=== PATIENT | male | born 1950 | race African-American/Black ===

== ENCOUNTER 2017-10-16 17:18 | Inpatient (IN) | payer MEDICARE, MEDICAID, OTHER ==
[2017-10-16] MEDS: SOD CHLORIDE 0.9% 500 ML IV (23:17)
[2017-10-16 23:32] LABS: ADD MAN DIFF? NO
[2017-10-16 23:37] LABS: WHITE BLOOD COUNT 8.3 10^3/ul (4.8-10.8)
[2017-10-16 23:37] LABS: BASOPHIL # 0.1 10^3/ul (0.0-0.1); BASOPHILS % 0.6 % (0.0-2.0); EOSINOPHILS # 0.1 10^3/ul (0.0-0.5); HEMATOCRIT 37.2 % (42.0-52.0); HEMOGLOBIN 12.9 g/dl (14.0-18.0); LYMPHOCYTES # 3.6 10^3/ul (0.8-2.9); LYMPHOCYTES % 43.1 % (15.0-51.0); MEAN CORPUSCULAR HEMOGLOBIN 31.9 pg (29.0-33.0); MEAN CORPUSCULAR HGB CONC 34.7 g/dl (32.0-37.0); MEAN CORPUSCULAR VOLUME 92.1 fl (82.0-101.0); MEAN PLATELET VOLUME 9.7 fl (7.4-10.4); MONOCYTE # 0.6 10^3/ul (0.3-0.9); MONOCYTES % 7.2 % (0.0-11.0); NEUTROPHILS % 47.6 % (39.0-77.0); PLATELET COUNT 281 10^3/UL (140-415); RED BLOOD COUNT 4.04 10^6/ul (4.70-6.10); RED CELL DISTRIBUTION WIDTH 12.8 % (11.5-14.5)
[2017-10-16 23:49] LABS: ADD UMIC YES; UR AMORPHOUS CRYSTAL FEW /HPF (NONE SEEN); UR ASCORBIC ACID NEGATIVE (NEGATIVE); UR BACTERIA FEW /HPF (NONE SEEN); UR BILIRUBIN (Dip) NEGATIVE (NEGATIVE); UR BLOOD (Dip) NEGATIVE (NEGATIVE); UR CLARITY TURBID (CLEAR); UR COLOR YELLOW (YELLOW); UR GLUCOSE (Dip) NEGATIVE (NEGATIVE); UR KETONES (Dip) NEGATIVE (NEGATIVE); UR LEUKOCYTE ESTERASE (Dip) 2+ Leu/ul (NEGATIVE); UR NITRITE (Dip) NEGATIVE (NEGATIVE); UR RBC 5 /HPF (0-5); UR SPECIFIC GRAVITY (Dip) 1.016 (1.003-1.030); UR TOTAL PROTEIN (Dip) 3+ mg/dl (NEGATIVE); UR URIC ACID CRYSTAL MANY /HPF (NONE SEEN); UR UROBILINOGEN (Dip) NEGATIVE (NEGATIVE); UR WBC 41 /HPF (0-5)
[2017-10-16 23:52] LABS: LACTIC ACID 1.8 mmol/L (0.5-2.0)
[2017-10-16 23:58] LABS: INR 0.92; PROTIME 12.4 Sec (11.9-14.9)
[2017-10-16 23:59] LABS: PARTIAL THROMBOPLASTIN TIME 31.5 Sec (25.0-35.0)
[2017-10-17] LABS: ALANINE AMINOTRANSFERASE 41 IU/L (13-69); ALBUMIN 3.2 g/dl (3.3-4.9); ALBUMIN/GLOBULIN RATIO 0.88; ALKALINE PHOSPHATASE 55 IU/L (42-121); ANION GAP 16 (8-16); ASPARTATE AMINO TRANSFERASE 37 IU/L (15-46); BLOOD UREA NITROGEN 21 mg/dl (7-20); CALCIUM 9.2 mg/dl (8.4-10.2); CARBON DIOXIDE 21 mmol/L (21-31); CHLORIDE 104 mmol/L (97-110); CREATININE 1.03 mg/dl (0.61-1.24); GLUCOSE 103 mg/dl (70-220); LIPASE 101 U/L (23-300); POTASSIUM 4.2 mmol/L (3.5-5.1); SODIUM 137 mmol/L (135-144); TOTAL PROTEIN 6.8 g/dl (6.1-8.1)
[2017-10-17 00:11] LABS: TROPONIN-I 0.016 ng/ml (0.00-0.12)
[2017-10-17] MEDS ORDERED: ACETAMINOPHEN 325 MG TAB PO ×2 (00:30→03:00)
[2017-10-17] MEDS ORDERED: ONDANSETRON 4 MG INJ IV ×2 (00:30→03:00)
[2017-10-17] MEDS: ONDANSETRON 4 MG INJ IV (00:47)
[2017-10-17] MEDS: morphine 10 MG INJ IV (00:48)
[2017-10-17] MEDS: CEFTRIAXONE 1 GM/50 ML (PMX) 50 ML IVPB ×3 (01:40→20:42)
[2017-10-17] MEDS ORDERED: LORAZEPAM 1 MG TAB PO (03:00)
[2017-10-17] MEDS ORDERED: NACL 0.9% 3 ML SYG IV (03:00)
[2017-10-17] MEDS: DOCUSATE SODIUM 100 MG CAP PO ×3 (03:09→20:42)
[2017-10-17] MEDS: SOD CHLORIDE 0.9% 1,000 ML IV ×3 (03:10→17:29)
[2017-10-17] MEDS: VALSARTAN 80 MG TAB PO ×3 (03:13→20:42)
[2017-10-17] MEDS: morphine 2 MG INJ IV ×4 (06:15→19:38)
[2017-10-17 06:27] LABS: ADD MAN DIFF? NO
[2017-10-17 06:41] LABS: BASOPHILS % 0.6 % (0.0-2.0); EOSINOPHILS # 0.1 10^3/ul (0.0-0.5); EOSINOPHILS % 1.7 % (0.0-7.0); HEMATOCRIT 33.9 % (42.0-52.0); HEMOGLOBIN 11.7 g/dl (14.0-18.0); LYMPHOCYTES # 3.3 10^3/ul (0.8-2.9); LYMPHOCYTES % 52.5 % (15.0-51.0); MEAN CORPUSCULAR HEMOGLOBIN 31.5 pg (29.0-33.0); MEAN CORPUSCULAR HGB CONC 34.5 g/dl (32.0-37.0); MEAN CORPUSCULAR VOLUME 91.4 fl (82.0-101.0); MEAN PLATELET VOLUME 9.8 fl (7.4-10.4); MONOCYTE # 0.5 10^3/ul (0.3-0.9); MONOCYTES % 8.4 % (0.0-11.0); NEUTROPHIL # 2.3 10^3/ul (1.6-7.5); NEUTROPHILS % 36.5 % (39.0-77.0); PLATELET COUNT 254 10^3/UL (140-415); RED BLOOD COUNT 3.71 10^6/ul (4.70-6.10); RED CELL DISTRIBUTION WIDTH 12.8 % (11.5-14.5)
[2017-10-17 06:41] LABS: WHITE BLOOD COUNT 6.3 10^3/ul (4.8-10.8)
[2017-10-17 07:04] LABS: ALANINE AMINOTRANSFERASE 38 IU/L (13-69); ALBUMIN 2.8 g/dl (3.3-4.9); ALKALINE PHOSPHATASE 51 IU/L (42-121); ANION GAP 12 (8-16); ASPARTATE AMINO TRANSFERASE 34 IU/L (15-46); BLOOD UREA NITROGEN 18 mg/dl (7-20); CALCIUM 8.4 mg/dl (8.4-10.2); CARBON DIOXIDE 24 mmol/L (21-31); CHLORIDE 109 mmol/L (97-110); CREATININE 0.86 mg/dl (0.61-1.24); GLUCOSE 93 mg/dl (70-220); MAGNESIUM 1.6 mg/dl (1.7-2.5); PHOSPHORUS 4.2 mg/dl (2.5-4.9); POTASSIUM 3.8 mmol/L (3.5-5.1); SODIUM 141 mmol/L (135-144); TOTAL PROTEIN 6.3 g/dl (6.1-8.1)
[2017-10-17] MEDS ORDERED: ZOLPIDEM 5 MG TAB PO (07:30)
[2017-10-17] MEDS: BACLOFEN 10 MG TAB PO ×2 (08:27→20:42)
[2017-10-17] MEDS: AMLODIPINE 5 MG TAB PO (08:27)
[2017-10-17] MEDS: RISPERIDONE 1 MG TAB PO ×2 (08:31→20:42)
[2017-10-17] MEDS: ENOXAPARIN 40 MG/0.4 ML SYG SC (08:31)
[2017-10-17] MEDS: PANTOPRAZOLE (EC) 40 MG TAB PO (08:34)
[2017-10-17 10:27] LABS: ADD UMIC YES; UR ASCORBIC ACID NEGATIVE (NEGATIVE); UR BACTERIA FEW /HPF (NONE SEEN); UR BILIRUBIN (Dip) NEGATIVE (NEGATIVE); UR BLOOD (Dip) 1+ mg/dL (NEGATIVE); UR CLARITY SLIGHTLY CLOUDY (CLEAR); UR COLOR YELLOW (YELLOW); UR GLUCOSE (Dip) NEGATIVE (NEGATIVE); UR KETONES (Dip) NEGATIVE (NEGATIVE); UR LEUKOCYTE ESTERASE (Dip) 3+ Leu/ul (NEGATIVE); UR NITRITE (Dip) NEGATIVE (NEGATIVE); UR NONSQUAMOUS EPITHELIAL CELL 1 /HPF (NONE SEEN); UR RBC 12 /HPF (0-5); UR SPECIFIC GRAVITY (Dip) 1.016 (1.003-1.030); UR TOTAL PROTEIN (Dip) 3+ mg/dl (NEGATIVE); UR UROBILINOGEN (Dip) NEGATIVE (NEGATIVE); UR WBC 41 /HPF (0-5)
[2017-10-17] MEDS: LIDOCAINE 5% PATCH TD (18:36)
[2017-10-17] MEDS: NICOTINE (21 MG/24 HR) PATCH TRANSDERM (18:36)
[2017-10-17] MEDS: METOPROLOL (XL) 50 MG TAB PO (20:42)
[2017-10-18] MEDS: morphine 2 MG INJ IV (05:34)
[2017-10-18 07:45] LABS: ADD MAN DIFF? NO
[2017-10-18 07:48] LABS: WHITE BLOOD COUNT 5.6 10^3/ul (4.8-10.8)
[2017-10-18 07:48] LABS: BASOPHIL # 0.1 10^3/ul (0.0-0.1); BASOPHILS % 0.9 % (0.0-2.0); EOSINOPHILS # 0.1 10^3/ul (0.0-0.5); HEMATOCRIT 36.3 % (42.0-52.0); HEMOGLOBIN 12.5 g/dl (14.0-18.0); LYMPHOCYTES # 2.4 10^3/ul (0.8-2.9); LYMPHOCYTES % 43.4 % (15.0-51.0); MEAN CORPUSCULAR HEMOGLOBIN 32.1 pg (29.0-33.0); MEAN CORPUSCULAR HGB CONC 34.4 g/dl (32.0-37.0); MEAN CORPUSCULAR VOLUME 93.3 fl (82.0-101.0); MEAN PLATELET VOLUME 10.2 fl (7.4-10.4); MONOCYTE # 0.4 10^3/ul (0.3-0.9); MONOCYTES % 7.4 % (0.0-11.0); NEUTROPHIL # 2.6 10^3/ul (1.6-7.5); NEUTROPHILS % 46.1 % (39.0-77.0); PLATELET COUNT 240 10^3/UL (140-415); RED BLOOD COUNT 3.89 10^6/ul (4.70-6.10); RED CELL DISTRIBUTION WIDTH 12.9 % (11.5-14.5)
[2017-10-18 08:09] LABS: ANION GAP 11 (8-16); BLOOD UREA NITROGEN 16 mg/dl (7-20); CALCIUM 8.9 mg/dl (8.4-10.2); CARBON DIOXIDE 27 mmol/L (21-31); CHLORIDE 111 mmol/L (97-110); GLUCOSE 114 mg/dl (70-220); MAGNESIUM 1.7 mg/dl (1.7-2.5); PHOSPHORUS 3.3 mg/dl (2.5-4.9); POTASSIUM 3.9 mmol/L (3.5-5.1); SODIUM 145 mmol/L (135-144)
[2017-10-18] MEDS: PANTOPRAZOLE (EC) 40 MG TAB PO (08:27)
[2017-10-18] MEDS: DOCUSATE SODIUM 100 MG CAP PO ×2 (08:27→20:52)
[2017-10-18] MEDS: CEFTRIAXONE 1 GM/50 ML (PMX) 50 ML IVPB ×2 (08:27→20:56)
[2017-10-18] MEDS: BACLOFEN 10 MG TAB PO ×2 (08:28→20:56)
[2017-10-18] MEDS: AMLODIPINE 5 MG TAB PO (08:28)
[2017-10-18] MEDS: RISPERIDONE 1 MG TAB PO ×2 (08:28→20:56)
[2017-10-18] MEDS: VALSARTAN 80 MG TAB PO ×2 (08:28→20:52)
[2017-10-18] MEDS: LIDOCAINE 5% PATCH TD (08:29)
[2017-10-18] MEDS: NICOTINE (21 MG/24 HR) PATCH TRANSDERM (08:29)
[2017-10-18] MEDS: ENOXAPARIN 40 MG/0.4 ML SYG SC (08:31)
[2017-10-18] MEDS: MUPIROCIN 2% 22 GM OINT TOP ×2 (13:08→22:15)
[2017-10-18] MEDS: OXYCODONE/ACETAMINOPHEN (5/325) TAB PO (17:34)
[2017-10-18] MEDS: METOPROLOL (XL) 50 MG TAB PO (20:53)
[2017-10-19 07:16] LABS: ANION GAP 10 (8-16); BLOOD UREA NITROGEN 15 mg/dl (7-20); CARBON DIOXIDE 27 mmol/L (21-31); CHLORIDE 113 mmol/L (97-110); CREATININE 0.81 mg/dl (0.61-1.24); GLUCOSE 110 mg/dl (70-220); POTASSIUM 3.8 mmol/L (3.5-5.1); SODIUM 146 mmol/L (135-144)
[2017-10-19] MEDS: CEFTRIAXONE 1 GM/50 ML (PMX) 50 ML IVPB ×2 (08:24→20:29)
[2017-10-19] MEDS: PANTOPRAZOLE (EC) 40 MG TAB PO (08:24)
[2017-10-19] MEDS: DOCUSATE SODIUM 100 MG CAP PO ×2 (08:25→20:27)
[2017-10-19] MEDS: BACLOFEN 10 MG TAB PO ×2 (08:29→20:27)
[2017-10-19] MEDS: VALSARTAN 80 MG TAB PO ×2 (08:29→20:27)
[2017-10-19] MEDS: AMLODIPINE 5 MG TAB PO (08:30)
[2017-10-19] MEDS: RISPERIDONE 1 MG TAB PO ×2 (08:30→20:29)
[2017-10-19] MEDS: NICOTINE (21 MG/24 HR) PATCH TRANSDERM (08:31)
[2017-10-19] MEDS: MUPIROCIN 2% 22 GM OINT TOP ×2 (08:32→20:29)
[2017-10-19] MEDS: LIDOCAINE 5% PATCH TD (08:32)
[2017-10-19] MEDS: ENOXAPARIN 40 MG/0.4 ML SYG SC (08:35)
[2017-10-19] MEDS: morphine 2 MG INJ IV ×2 (10:12→14:09)
[2017-10-19] MEDS ORDERED: VITAMIN A & D 5 GM OINT PACKET TOP (11:59)
[2017-10-19] MEDS: morphine 4 MG/ML VIAL IV ×2 (18:09→22:31)
[2017-10-19] MEDS: METOPROLOL (XL) 50 MG TAB PO (20:28)
[2017-10-20] MEDS: morphine 4 MG/ML VIAL IV ×6 (02:17→22:56)
[2017-10-20] MEDS: CEFTRIAXONE 1 GM/50 ML (PMX) 50 ML IVPB ×2 (08:53→20:35)
[2017-10-20] MEDS: NICOTINE (21 MG/24 HR) PATCH TRANSDERM (08:54)
[2017-10-20] MEDS: DOCUSATE SODIUM 100 MG CAP PO ×2 (08:55→20:35)
[2017-10-20] MEDS: PANTOPRAZOLE (EC) 40 MG TAB PO (08:55)
[2017-10-20] MEDS: VALSARTAN 80 MG TAB PO ×2 (08:55→20:37)
[2017-10-20] MEDS: LIDOCAINE 5% PATCH TD (08:55)
[2017-10-20] MEDS: BACLOFEN 10 MG TAB PO ×2 (08:55→20:35)
[2017-10-20] MEDS: AMLODIPINE 5 MG TAB PO (08:56)
[2017-10-20] MEDS: MUPIROCIN 2% 22 GM OINT TOP ×2 (08:56→20:36)
[2017-10-20] MEDS: ENOXAPARIN 40 MG/0.4 ML SYG SC (08:58)
[2017-10-20] MEDS: RISPERIDONE 1 MG TAB PO ×2 (09:00→20:38)
[2017-10-20] MEDS: hydrALAzine 20 MG INJ IV (15:14)
[2017-10-20] MEDS: METOPROLOL (XL) 50 MG TAB PO (20:35)
[2017-10-21] MEDS: morphine 4 MG/ML VIAL IV ×5 (02:49→19:55)
[2017-10-21] MEDS: NICOTINE (21 MG/24 HR) PATCH TRANSDERM (08:24)
[2017-10-21] MEDS: CEFTRIAXONE 1 GM/50 ML (PMX) 50 ML IVPB ×2 (08:24→20:26)
[2017-10-21] MEDS: DOCUSATE SODIUM 100 MG CAP PO ×2 (08:25→20:24)
[2017-10-21] MEDS: PANTOPRAZOLE (EC) 40 MG TAB PO (08:25)
[2017-10-21] MEDS: BACLOFEN 10 MG TAB PO ×2 (08:25→20:25)
[2017-10-21] MEDS: VALSARTAN 80 MG TAB PO ×2 (08:25→20:25)
[2017-10-21] MEDS: AMLODIPINE 5 MG TAB PO (08:26)
[2017-10-21] MEDS: LIDOCAINE 5% PATCH TD (08:26)
[2017-10-21] MEDS: ENOXAPARIN 40 MG/0.4 ML SYG SC (08:37)
[2017-10-21] MEDS: RISPERIDONE 1 MG TAB PO ×2 (08:41→20:25)
[2017-10-21] MEDS: MUPIROCIN 2% 22 GM OINT TOP ×2 (08:42→20:26)
[2017-10-21 14:27] LABS: ADD MAN DIFF? NO
[2017-10-21 14:30] LABS: BASOPHIL # 0.1 10^3/ul (0.0-0.1); BASOPHILS % 0.8 % (0.0-2.0); EOSINOPHILS # 0.1 10^3/ul (0.0-0.5); EOSINOPHILS % 2.1 % (0.0-7.0); HEMATOCRIT 35.3 % (42.0-52.0); HEMOGLOBIN 12.2 g/dl (14.0-18.0); LYMPHOCYTES # 2.7 10^3/ul (0.8-2.9); LYMPHOCYTES % 41.9 % (15.0-51.0); MEAN CORPUSCULAR HEMOGLOBIN 31.9 pg (29.0-33.0); MEAN CORPUSCULAR HGB CONC 34.6 g/dl (32.0-37.0); MEAN CORPUSCULAR VOLUME 92.4 fl (82.0-101.0); MEAN PLATELET VOLUME 10.2 fl (7.4-10.4); MONOCYTE # 0.5 10^3/ul (0.3-0.9); MONOCYTES % 7.4 % (0.0-11.0); NEUTROPHIL # 3.1 10^3/ul (1.6-7.5); NEUTROPHILS % 47.5 % (39.0-77.0); PLATELET COUNT 220 10^3/UL (140-415); RED BLOOD COUNT 3.82 10^6/ul (4.70-6.10); RED CELL DISTRIBUTION WIDTH 12.8 % (11.5-14.5)
[2017-10-21 14:30] LABS: WHITE BLOOD COUNT 6.5 10^3/ul (4.8-10.8)
[2017-10-21 14:57] LABS: ANION GAP 11 (8-16); BLOOD UREA NITROGEN 18 mg/dl (7-20); CALCIUM 8.6 mg/dl (8.4-10.2); CARBON DIOXIDE 26 mmol/L (21-31); CHLORIDE 109 mmol/L (97-110); CREATININE 0.71 mg/dl (0.61-1.24); GLUCOSE 121 mg/dl (70-220); MAGNESIUM 1.4 mg/dl (1.7-2.5); POTASSIUM 3.7 mmol/L (3.5-5.1); SODIUM 142 mmol/L (135-144)
[2017-10-21] MEDS: METOPROLOL (XL) 50 MG TAB PO (20:25)
[2017-10-22] MEDS: morphine 4 MG/ML VIAL IV ×6 (00:02→20:14)
[2017-10-22] MEDS: BACLOFEN 10 MG TAB PO ×2 (08:12→20:17)
[2017-10-22] MEDS: DOCUSATE SODIUM 100 MG CAP PO ×2 (08:12→20:17)
[2017-10-22] MEDS: CEFTRIAXONE 1 GM/50 ML (PMX) 50 ML IVPB ×2 (08:13→20:14)
[2017-10-22] MEDS: PANTOPRAZOLE (EC) 40 MG TAB PO (08:13)
[2017-10-22] MEDS: NICOTINE (21 MG/24 HR) PATCH TRANSDERM (08:14)
[2017-10-22] MEDS: LIDOCAINE 5% PATCH TD (08:15)
[2017-10-22] MEDS: AMLODIPINE 5 MG TAB PO (08:19)
[2017-10-22] MEDS: VALSARTAN 80 MG TAB PO ×2 (08:20→20:17)
[2017-10-22] MEDS: ENOXAPARIN 40 MG/0.4 ML SYG SC (08:29)
[2017-10-22] MEDS: MUPIROCIN 2% 22 GM OINT TOP ×2 (09:00→20:18)
[2017-10-22] MEDS: RISPERIDONE 1 MG TAB PO ×3 (09:00→20:23)
[2017-10-22] MEDS: METOPROLOL (XL) 50 MG TAB PO (20:17)
[2017-10-23] MEDS: morphine 4 MG/ML VIAL IV ×6 (00:24→21:42)
[2017-10-23] MEDS: hydrALAzine 20 MG INJ IV ×3 (02:34→15:43)
[2017-10-23] MEDS: CEFTRIAXONE 1 GM/50 ML (PMX) 50 ML IVPB ×2 (08:23→21:42)
[2017-10-23] MEDS: DOCUSATE SODIUM 100 MG CAP PO ×2 (08:23→21:40)
[2017-10-23] MEDS: VALSARTAN 80 MG TAB PO ×2 (08:23→21:40)
[2017-10-23] MEDS: PANTOPRAZOLE (EC) 40 MG TAB PO (08:23)
[2017-10-23] MEDS: AMLODIPINE 5 MG TAB PO (08:24)
[2017-10-23] MEDS: BACLOFEN 10 MG TAB PO ×2 (08:24→21:40)
[2017-10-23] MEDS: NICOTINE (21 MG/24 HR) PATCH TRANSDERM (08:24)
[2017-10-23] MEDS: MUPIROCIN 2% 22 GM OINT TOP ×2 (08:25→21:42)
[2017-10-23] MEDS: LIDOCAINE 5% PATCH TD (08:25)
[2017-10-23] MEDS: ENOXAPARIN 40 MG/0.4 ML SYG SC (08:28)
[2017-10-23] MEDS: RISPERIDONE 1 MG TAB PO (21:00)
[2017-10-24] MEDS: morphine 4 MG/ML VIAL IV ×6 (01:43→22:05)
[2017-10-24] MEDS: RISPERIDONE 1 MG TAB PO ×2 (09:00→20:40)
[2017-10-24] MEDS: PANTOPRAZOLE (EC) 40 MG TAB PO (09:14)
[2017-10-24] MEDS: CEFTRIAXONE 1 GM/50 ML (PMX) 50 ML IVPB (09:14)
[2017-10-24] MEDS: VALSARTAN 80 MG TAB PO ×2 (09:15→20:40)
[2017-10-24] MEDS: DOCUSATE SODIUM 100 MG CAP PO ×2 (09:15→20:38)
[2017-10-24] MEDS: BACLOFEN 10 MG TAB PO ×2 (09:15→20:38)
[2017-10-24] MEDS: NICOTINE (21 MG/24 HR) PATCH TRANSDERM (09:16)
[2017-10-24] MEDS: MUPIROCIN 2% 22 GM OINT TOP ×2 (09:16→20:41)
[2017-10-24] MEDS: LIDOCAINE 5% PATCH TD (09:16)
[2017-10-24] MEDS: AMLODIPINE 10 MG TAB PO (09:16)
[2017-10-24] MEDS: ENOXAPARIN 40 MG/0.4 ML SYG SC (09:21)
[2017-10-24] MEDS: LACTULOSE 30ML CUP PO (20:40)
[2017-10-25] MEDS: morphine 4 MG/ML VIAL IV ×4 (02:18→14:07)
[2017-10-25] MEDS: hydrALAzine 20 MG INJ IV (03:46)
[2017-10-25] MEDS: PANTOPRAZOLE (EC) 40 MG TAB PO (08:43)
[2017-10-25] MEDS: DOCUSATE SODIUM 100 MG CAP PO (08:45)
[2017-10-25] MEDS: LACTULOSE 30ML CUP PO (08:46)
[2017-10-25] MEDS: VALSARTAN 80 MG TAB PO (08:46)
[2017-10-25] MEDS: BACLOFEN 10 MG TAB PO (08:46)
[2017-10-25] MEDS: AMLODIPINE 10 MG TAB PO (08:47)
[2017-10-25] MEDS: RISPERIDONE 1 MG TAB PO (08:47)
[2017-10-25] MEDS: LIDOCAINE 5% PATCH TD (08:47)
[2017-10-25] MEDS: NICOTINE (21 MG/24 HR) PATCH TRANSDERM (08:47)
[2017-10-25] MEDS: MUPIROCIN 2% 22 GM OINT TOP (08:48)
[2017-10-25] MEDS: ENOXAPARIN 40 MG/0.4 ML SYG SC (08:51)
[2017-10-25] MEDS: OXYCODONE/ACETAMINOPHEN (5/325) TAB PO (11:52)
== END 2017-10-25 19:15 | disposition home or self-care (01) | DRG 699 ==
LOC: MS2 10-17 00:22 → E/R 17:18 → MS2 10-18 16:15
DX: T83.510A Infection and inflammatory reaction due to cystostomy catheter, initial encounter (principal); N39.0 Urinary tract infection, site not specified; I10 Essential (primary) hypertension; B96.20 Unspecified Escherichia coli [E. coli] as the cause of diseases classified elsewhere; R11.2 Nausea with vomiting, unspecified; Z93.3 Colostomy status; Z86.73 Personal history of transient ischemic attack (TIA), and cerebral infarction without residual deficits; N43.3 Hydrocele, unspecified; N50.3 Cyst of epididymis; M25.511 Pain in right shoulder; Z72.0 Tobacco use
CPT/HCPCS: 36415; 71045; 74176; 76870; 80048; 80053; 81001; 83605; 83690; 83735; 84100; 84484; 85025; 85610; 85730; 87081; 87086; 93005; 96365; 96375; 97110; 97116; 97162; 97530; 99285-25

== ENCOUNTER 2017-11-16 17:25 | Inpatient (IN) | payer MEDICARE, OTHER, MEDICAID ==
[2017-11-16] MEDS: ONDANSETRON 4 MG INJ IV (20:48)
[2017-11-16] MEDS: SOD CHLORIDE 0.9% 1,000 ML IV (20:48)
[2017-11-16] MEDS ORDERED: ONDANSETRON (ODT) 4 MG TAB ODT (21:24)
[2017-11-16] MEDS: HYDROmorphONE 0.5 MG/0.5 ML SYG IV (21:26)
[2017-11-16] MEDS: IODIXANOL LOCM 100 ML BTL (22:02)
[2017-11-16] MEDS: SOD CHLORIDE 0.9% 100 ML (22:02)
[2017-11-16 22:17] LABS: ADD MAN DIFF? NO
[2017-11-16 22:22] LABS: BASOPHILS % 0.6 % (0.0-2.0); EOSINOPHILS # 0.2 10^3/ul (0.0-0.5); EOSINOPHILS % 2.6 % (0.0-7.0); HEMATOCRIT 38.2 % (42.0-52.0); LYMPHOCYTES % 45.5 % (15.0-51.0); MEAN CORPUSCULAR HEMOGLOBIN 31.9 pg (29.0-33.0); MEAN CORPUSCULAR VOLUME 93.9 fl (82.0-101.0); MEAN PLATELET VOLUME 9.4 fl (7.4-10.4); MONOCYTE # 0.6 10^3/ul (0.3-0.9); MONOCYTES % 8.9 % (0.0-11.0); NEUTROPHIL # 2.8 10^3/ul (1.6-7.5); NEUTROPHILS % 42.2 % (39.0-77.0); PLATELET COUNT 237 10^3/UL (140-415); RED BLOOD COUNT 4.07 10^6/ul (4.70-6.10)
[2017-11-16 22:22] LABS: WHITE BLOOD COUNT 6.6 10^3/ul (4.8-10.8)
[2017-11-16 22:27] LABS: ADD UMIC YES; UR ASCORBIC ACID NEGATIVE (NEGATIVE); UR BACTERIA MANY /HPF (NONE SEEN); UR BILIRUBIN (Dip) NEGATIVE (NEGATIVE); UR BLOOD (Dip) 1+ mg/dL (NEGATIVE); UR CLARITY CLOUDY (CLEAR); UR COLOR RED (YELLOW); UR GLUCOSE (Dip) NEGATIVE (NEGATIVE); UR KETONES (Dip) TRACE mg/dL (NEGATIVE); UR LEUKOCYTE ESTERASE (Dip) 3+ Leu/ul (NEGATIVE); UR MUCUS MODERATE /HPF (NONE SEEN); UR NITRITE (Dip) NEGATIVE (NEGATIVE); UR RBC 18 /HPF (0-5); UR SPECIFIC GRAVITY (Dip) 1.016 (1.003-1.030); UR TOTAL PROTEIN (Dip) 3+ mg/dl (NEGATIVE); UR UROBILINOGEN (Dip) NEGATIVE (NEGATIVE); UR WBC 18 /HPF (0-5)
[2017-11-16 22:41] LABS: ALANINE AMINOTRANSFERASE 34 IU/L (13-69); ALBUMIN 3.1 g/dl (3.3-4.9); ALBUMIN/GLOBULIN RATIO 0.88; ALKALINE PHOSPHATASE 61 IU/L (42-121); ANION GAP 16 (8-16); ASPARTATE AMINO TRANSFERASE 42 IU/L (15-46); BILIRUBIN,INDIRECT 0.1 mg/dl (0-1.1); BILIRUBIN,TOTAL 0.1 mg/dl (0.2-1.3); BLOOD UREA NITROGEN 13 mg/dl (7-20); CALCIUM 8.6 mg/dl (8.4-10.2); CARBON DIOXIDE 24 mmol/L (21-31); CHLORIDE 105 mmol/L (97-110); CREATININE 1.02 mg/dl (0.61-1.24); GLUCOSE 89 mg/dl (70-220); POTASSIUM 3.5 mmol/L (3.5-5.1); SODIUM 141 mmol/L (135-144); TOTAL PROTEIN 6.6 g/dl (6.1-8.1)
[2017-11-16 22:51] LABS: TROPONIN-I 0.013 ng/ml (0.00-0.12)
[2017-11-16] MEDS: LORAZEPAM 2 MG INJ IV (22:52)
[2017-11-16] MEDS ORDERED: SOD CHLORIDE 0.9% 1,000 ML IV (23:46)
[2017-11-17] MEDS ORDERED: ACETAMINOPHEN 325 MG TAB PO
[2017-11-17] MEDS: morphine 2 MG INJ IV ×6 (01:56→22:03)
[2017-11-17] MEDS ORDERED: ONDANSETRON 4 MG INJ IV ×3 (02:00→17:00)
[2017-11-17] MEDS: DEXTROSE 5%-0.45% NACL 1,000 ML IV ×3 (02:00→13:05)
[2017-11-17] MEDS: hydrALAzine 20 MG INJ IV ×2 (02:19→06:27)
[2017-11-17] MEDS: PANTOPRAZOLE 40 MG INJ IV ×2 (03:06→08:49)
[2017-11-17] MEDS ORDERED: ZOLPIDEM 5 MG TAB PO (05:00)
[2017-11-17] MEDS ORDERED: LORAZEPAM 1 MG TAB PO (05:00)
[2017-11-17] MEDS ORDERED: HYDROCODONE/APAP (5/325) TAB PO (05:00)
[2017-11-17] MEDS: PANTOPRAZOLE (EC) 40 MG TAB PO (07:27)
[2017-11-17] MEDS: DOCUSATE SODIUM 100 MG CAP PO ×2 (08:40→20:57)
[2017-11-17] MEDS: BACLOFEN 10 MG TAB PO (08:40)
[2017-11-17] MEDS: VALSARTAN 80 MG TAB PO (08:40)
[2017-11-17] MEDS: DILTIAZEM (CD) 240 MG CAP PO (08:40)
[2017-11-17] MEDS: AMLODIPINE 5 MG TAB PO (08:40)
[2017-11-17] MEDS: RISPERIDONE 1 MG TAB PO ×2 (08:41→20:57)
[2017-11-17] MEDS: CEFTRIAXONE 1 GM/50 ML (PMX) 50 ML IVPB (08:49)
[2017-11-17 09:10] LABS: ADD MAN DIFF? NO
[2017-11-17 09:12] LABS: BASOPHILS % 0.3 % (0.0-2.0); EOSINOPHILS # 0.1 10^3/ul (0.0-0.5); EOSINOPHILS % 1.1 % (0.0-7.0); HEMATOCRIT 36.5 % (42.0-52.0); HEMOGLOBIN 12.5 g/dl (14.0-18.0); LYMPHOCYTES # 1.4 10^3/ul (0.8-2.9); LYMPHOCYTES % 19.8 % (15.0-51.0); MEAN CORPUSCULAR HEMOGLOBIN 31.8 pg (29.0-33.0); MEAN CORPUSCULAR HGB CONC 34.2 g/dl (32.0-37.0); MEAN CORPUSCULAR VOLUME 92.9 fl (82.0-101.0); MEAN PLATELET VOLUME 9.6 fl (7.4-10.4); MONOCYTE # 0.4 10^3/ul (0.3-0.9); MONOCYTES % 6.3 % (0.0-11.0); NEUTROPHIL # 5.1 10^3/ul (1.6-7.5); NEUTROPHILS % 72.2 % (39.0-77.0); PLATELET COUNT 227 10^3/UL (140-415); RED BLOOD COUNT 3.93 10^6/ul (4.70-6.10); RED CELL DISTRIBUTION WIDTH 14.2 % (11.5-14.5)
[2017-11-17 09:43] LABS: ANION GAP 10 (8-16); BLOOD UREA NITROGEN 12 mg/dl (7-20); CARBON DIOXIDE 27 mmol/L (21-31); CHLORIDE 108 mmol/L (97-110); CREATININE 0.77 mg/dl (0.61-1.24); GLUCOSE 104 mg/dl (70-220); MAGNESIUM 1.5 mg/dl (1.7-2.5); PHOSPHORUS 3.1 mg/dl (2.5-4.9); POTASSIUM 3.8 mmol/L (3.5-5.1); SODIUM 141 mmol/L (135-144)
[2017-11-17] MEDS: NICOTINE (14 MG/24 HR) PATCH TRANSDERM (13:06)
[2017-11-17] MEDS ORDERED: morphine 2 MG INJ IV (18:00)
[2017-11-17] MEDS: CLONIDINE 0.3 MG/24 HR PATCH TRANSDERM (18:07)
[2017-11-17] MEDS: DICLOFENAC SODIUM 1% GEL 100 GM TUBE TP (20:45)
[2017-11-17] MEDS: METOPROLOL (XL) 50 MG TAB PO (20:57)
[2017-11-17] MEDS: MAGNESIUM SULFATE 3 GM in DEXTROSE 5% 100 ML IVPB (21:55)
[2017-11-18] MEDS: morphine 2 MG INJ IV ×5 (02:07→22:34)
[2017-11-18] MEDS: DEXTROSE 5%-0.45% NACL 1,000 ML IV ×3 (02:07→13:28)
[2017-11-18] MEDS: PANTOPRAZOLE 40 MG INJ IV (05:42)
[2017-11-18 05:57] LABS: HAAIG REFLEX REFLEX FILED
[2017-11-18 06:01] LABS: ADD MAN DIFF? NO
[2017-11-18 06:03] LABS: WHITE BLOOD COUNT 5.8 10^3/ul (4.8-10.8)
[2017-11-18 06:03] LABS: BASOPHILS % 0.2 % (0.0-2.0); EOSINOPHILS # 0.2 10^3/ul (0.0-0.5); EOSINOPHILS % 3.1 % (0.0-7.0); HEMOGLOBIN 12.3 g/dl (14.0-18.0); LYMPHOCYTES # 1.6 10^3/ul (0.8-2.9); LYMPHOCYTES % 26.6 % (15.0-51.0); MEAN CORPUSCULAR HEMOGLOBIN 32.3 pg (29.0-33.0); MEAN CORPUSCULAR HGB CONC 34.2 g/dl (32.0-37.0); MEAN CORPUSCULAR VOLUME 94.5 fl (82.0-101.0); MEAN PLATELET VOLUME 11.1 fl (7.4-10.4); MONOCYTE # 0.5 10^3/ul (0.3-0.9); MONOCYTES % 7.7 % (0.0-11.0); NEUTROPHIL # 3.6 10^3/ul (1.6-7.5); NEUTROPHILS % 62.2 % (39.0-77.0); PLATELET COUNT 149 10^3/UL (140-415); RED BLOOD COUNT 3.81 10^6/ul (4.70-6.10); RED CELL DISTRIBUTION WIDTH 14.4 % (11.5-14.5)
[2017-11-18 06:25] LABS: INR 0.96; PROTIME 12.9 Sec (11.9-14.9)
[2017-11-18 06:26] LABS: ALANINE AMINOTRANSFERASE 30 IU/L (13-69); ALBUMIN 2.7 g/dl (3.3-4.9); ALKALINE PHOSPHATASE 55 IU/L (42-121); ANION GAP 8 (8-16); ASPARTATE AMINO TRANSFERASE 32 IU/L (15-46); BILIRUBIN,INDIRECT 0.3 mg/dl (0-1.1); BILIRUBIN,TOTAL 0.3 mg/dl (0.2-1.3); BLOOD UREA NITROGEN 9 mg/dl (7-20); CALCIUM 7.7 mg/dl (8.4-10.2); CARBON DIOXIDE 27 mmol/L (21-31); CHLORIDE 110 mmol/L (97-110); GLUCOSE 101 mg/dl (70-220); LIPASE 47 U/L (23-300); MAGNESIUM 2.2 mg/dl (1.7-2.5); PHOSPHORUS 2.6 mg/dl (2.5-4.9); POTASSIUM 3.6 mmol/L (3.5-5.1); SODIUM 141 mmol/L (135-144); TOTAL PROTEIN 5.7 g/dl (6.1-8.1)
[2017-11-18 06:26] LABS: LACTATE DEHYDROGENASE 705 IU/L (313-618)
[2017-11-18 06:54] LABS: THYROID STIMULATING HORMONE 0.622 MIU/L (0.465-4.680)
[2017-11-18 06:55] LABS: HEPATITIS B SURFACE ANTIGEN NEGATIVE (NEGATIVE)
[2017-11-18 07:13] LABS: HEPATITIS B CORE ANTIBODY REACTIVE (NEGATIVE)
[2017-11-18 07:22] LABS: HEPATITIS C VIRAL ANTIBODY REACTIVE (NEGATIVE)
[2017-11-18] MEDS: DILTIAZEM (CD) 240 MG CAP PO ×2 (09:00→09:14)
[2017-11-18] MEDS: DOCUSATE SODIUM 100 MG CAP PO ×2 (09:00→09:14)
[2017-11-18] MEDS: RISPERIDONE 1 MG TAB PO ×4 (09:00→20:28)
[2017-11-18] MEDS: DICLOFENAC SODIUM 1% GEL 100 GM TUBE TP ×3 (09:13→20:21)
[2017-11-18] MEDS: CEFTRIAXONE 1 GM/50 ML (PMX) 50 ML IVPB (09:13)
[2017-11-18] MEDS: NICOTINE (14 MG/24 HR) PATCH TRANSDERM (09:14)
[2017-11-18] MEDS: morphine 10 MG INJ IV (10:12)
[2017-11-18] MEDS: METOPROLOL (XL) 50 MG TAB PO (20:22)
[2017-11-19] MEDS: morphine 2 MG INJ IV ×3 (02:39→10:50)
[2017-11-19] MEDS: DEXTROSE 5%-0.45% NACL 1,000 ML IV ×3 (02:44→23:31)
[2017-11-19 06:25] LABS: ADD MAN DIFF? NO
[2017-11-19 06:27] LABS: WHITE BLOOD COUNT 4.7 10^3/ul (4.8-10.8)
[2017-11-19 06:27] LABS: BASOPHILS % 0.4 % (0.0-2.0); EOSINOPHILS # 0.2 10^3/ul (0.0-0.5); HEMATOCRIT 36.4 % (42.0-52.0); HEMOGLOBIN 12.4 g/dl (14.0-18.0); LYMPHOCYTES # 1.3 10^3/ul (0.8-2.9); LYMPHOCYTES % 28.2 % (15.0-51.0); MEAN CORPUSCULAR HEMOGLOBIN 32.5 pg (29.0-33.0); MEAN CORPUSCULAR HGB CONC 34.1 g/dl (32.0-37.0); MEAN CORPUSCULAR VOLUME 95.5 fl (82.0-101.0); MEAN PLATELET VOLUME 10.5 fl (7.4-10.4); MONOCYTE # 0.5 10^3/ul (0.3-0.9); MONOCYTES % 10.2 % (0.0-11.0); NEUTROPHIL # 2.7 10^3/ul (1.6-7.5); PLATELET COUNT 190 10^3/UL (140-415); RED BLOOD COUNT 3.81 10^6/ul (4.70-6.10); RED CELL DISTRIBUTION WIDTH 14.1 % (11.5-14.5)
[2017-11-19] MEDS: PANTOPRAZOLE 40 MG INJ IV (06:42)
[2017-11-19 07:01] LABS: ANION GAP 9 (8-16); BLOOD UREA NITROGEN 7 mg/dl (7-20); CALCIUM 7.8 mg/dl (8.4-10.2); CARBON DIOXIDE 25 mmol/L (21-31); CHLORIDE 112 mmol/L (97-110); CREATININE 0.64 mg/dl (0.61-1.24); GLUCOSE 96 mg/dl (70-220); MAGNESIUM 1.8 mg/dl (1.7-2.5); POTASSIUM 3.9 mmol/L (3.5-5.1); SODIUM 142 mmol/L (135-144)
[2017-11-19] MEDS: DIATR MEGLU/DIATRIZOATE SODIUM 120 ML BTL (08:43)
[2017-11-19] MEDS: DILTIAZEM (CD) 240 MG CAP PO ×2 (09:00→09:11)
[2017-11-19] MEDS: DICLOFENAC SODIUM 1% GEL 100 GM TUBE TP ×3 (09:11→20:41)
[2017-11-19] MEDS: CEFTRIAXONE 1 GM/50 ML (PMX) 50 ML IVPB (09:11)
[2017-11-19] MEDS: DOCUSATE SODIUM 250 MG CAP PO (09:11)
[2017-11-19] MEDS: RISPERIDONE 1 MG TAB PO ×2 (09:12→20:48)
[2017-11-19] MEDS: ENOXAPARIN 40 MG/0.4 ML SYG SC (09:13)
[2017-11-19] MEDS: POLYETHYLENE GLYCOL 17 GM PACKET PO (09:13)
[2017-11-19] MEDS: NICOTINE (14 MG/24 HR) PATCH TRANSDERM (09:21)
[2017-11-19] MEDS: HYDROmorphONE 2 MG TAB PO ×2 (14:43→22:35)
[2017-11-19] MEDS: oxyCODONE (CR) 40 MG TAB [oxyCONTIN] PO (20:40)
[2017-11-19] MEDS: METOPROLOL (XL) 50 MG TAB PO (20:41)
[2017-11-19] MEDS: hydrALAzine 20 MG INJ IV (22:35)
[2017-11-20] MEDS: NITROGLYCERIN (SL) 0.4 MG TAB SL
[2017-11-20] MEDS: morphine 2 MG INJ IV (00:59)
[2017-11-20] MEDS: DIPHENHYDRAMINE 50 MG INJ IV ×2 (01:08→01:30)
[2017-11-20 01:10] LABS: TROPONIN-I 0.014 ng/ml (0.00-0.12)
[2017-11-20] MEDS: KETOROLAC 30 MG INJ IV (01:30)
[2017-11-20] MEDS: PANTOPRAZOLE 40 MG INJ IV (05:20)
[2017-11-20 06:03] LABS: ADD MAN DIFF? NO
[2017-11-20 06:06] LABS: BASOPHILS % 0.4 % (0.0-2.0); EOSINOPHILS # 0.2 10^3/ul (0.0-0.5); EOSINOPHILS % 3.4 % (0.0-7.0); HEMATOCRIT 35.3 % (42.0-52.0); HEMOGLOBIN 11.9 g/dl (14.0-18.0); LYMPHOCYTES # 1.9 10^3/ul (0.8-2.9); LYMPHOCYTES % 35.9 % (15.0-51.0); MEAN CORPUSCULAR HEMOGLOBIN 32.2 pg (29.0-33.0); MEAN CORPUSCULAR HGB CONC 33.7 g/dl (32.0-37.0); MEAN CORPUSCULAR VOLUME 95.7 fl (82.0-101.0); MEAN PLATELET VOLUME 10.1 fl (7.4-10.4); MONOCYTE # 0.4 10^3/ul (0.3-0.9); NEUTROPHIL # 2.7 10^3/ul (1.6-7.5); NEUTROPHILS % 51.9 % (39.0-77.0); PLATELET COUNT 217 10^3/UL (140-415); RED BLOOD COUNT 3.69 10^6/ul (4.70-6.10); RED CELL DISTRIBUTION WIDTH 14.2 % (11.5-14.5)
[2017-11-20 06:06] LABS: WHITE BLOOD COUNT 5.3 10^3/ul (4.8-10.8)
[2017-11-20 06:21] LABS: CREATINE KINASE 64 IU/L (23-200)
[2017-11-20 06:22] LABS: ANION GAP 12 (8-16); BLOOD UREA NITROGEN 8 mg/dl (7-20); CARBON DIOXIDE 21 mmol/L (21-31); CHLORIDE 113 mmol/L (97-110); CREATININE 0.99 mg/dl (0.61-1.24); GLUCOSE 92 mg/dl (70-220); POTASSIUM 4.1 mmol/L (3.5-5.1); SODIUM 142 mmol/L (135-144)
[2017-11-20 06:31] LABS: CK INDEX 0.7; TROPONIN-I 0.024 ng/ml (0.00-0.12)
[2017-11-20 06:32] LABS: CK-MB 0.45 ng/ml (0.0-2.4)
[2017-11-20] MEDS: oxyCODONE (CR) 40 MG TAB [oxyCONTIN] PO ×2 (08:23→20:24)
[2017-11-20] MEDS: hydrALAzine 20 MG INJ IV ×5 (08:23→21:00)
[2017-11-20] MEDS: RISPERIDONE 1 MG TAB PO ×4 (08:34→21:00)
[2017-11-20] MEDS: NICOTINE (14 MG/24 HR) PATCH TRANSDERM (08:35)
[2017-11-20] MEDS: DILTIAZEM (CD) 240 MG CAP PO ×2 (08:35→08:50)
[2017-11-20] MEDS: DICLOFENAC SODIUM 1% GEL 100 GM TUBE TP ×3 (08:36→21:02)
[2017-11-20] MEDS: CEFTRIAXONE 1 GM/50 ML (PMX) 50 ML IVPB (08:36)
[2017-11-20] MEDS: ENOXAPARIN 40 MG/0.4 ML SYG SC (08:36)
[2017-11-20] MEDS: POLYETHYLENE GLYCOL 17 GM PACKET PO (09:00)
[2017-11-20] MEDS: DOCUSATE SODIUM 250 MG CAP PO (09:23)
[2017-11-20] MEDS: HYDROmorphONE 2 MG TAB PO ×2 (10:36→16:53)
[2017-11-20] MEDS: hydrOXYzine HCL 25 MG TAB PO (12:19)
[2017-11-20 13:41] LABS: CREATINE KINASE 77 IU/L (23-200)
[2017-11-20 13:53] LABS: CK INDEX 0.7
[2017-11-20 13:55] LABS: CK-MB 0.55 ng/ml (0.0-2.4); TROPONIN-I < 0.012 ng/ml (0.00-0.12)
[2017-11-20] MEDS: METOPROLOL (XL) 50 MG TAB PO (20:23)
[2017-11-21] MEDS: HYDROmorphONE 2 MG TAB PO (02:13)
[2017-11-21] MEDS: hydrALAzine 20 MG INJ IV ×4 (02:56→20:07)
[2017-11-21] MEDS: hydrOXYzine HCL 25 MG TAB PO (03:03)
[2017-11-21] MEDS: PANTOPRAZOLE 40 MG INJ IV (05:53)
[2017-11-21 06:21] LABS: ADD MAN DIFF? NO
[2017-11-21 06:30] LABS: BASOPHILS % 0.2 % (0.0-2.0); EOSINOPHILS # 0.1 10^3/ul (0.0-0.5); EOSINOPHILS % 2.8 % (0.0-7.0); HEMATOCRIT 35.5 % (42.0-52.0); HEMOGLOBIN 12.2 g/dl (14.0-18.0); LYMPHOCYTES # 1.6 10^3/ul (0.8-2.9); LYMPHOCYTES % 31.4 % (15.0-51.0); MEAN CORPUSCULAR HEMOGLOBIN 32.5 pg (29.0-33.0); MEAN CORPUSCULAR HGB CONC 34.4 g/dl (32.0-37.0); MEAN CORPUSCULAR VOLUME 94.7 fl (82.0-101.0); MEAN PLATELET VOLUME 10.5 fl (7.4-10.4); MONOCYTE # 0.4 10^3/ul (0.3-0.9); MONOCYTES % 8.9 % (0.0-11.0); NEUTROPHIL # 2.8 10^3/ul (1.6-7.5); NEUTROPHILS % 56.5 % (39.0-77.0); PLATELET COUNT 230 10^3/UL (140-415); RED BLOOD COUNT 3.75 10^6/ul (4.70-6.10); RED CELL DISTRIBUTION WIDTH 13.9 % (11.5-14.5)
[2017-11-21 06:30] LABS: WHITE BLOOD COUNT 4.9 10^3/ul (4.8-10.8)
[2017-11-21 06:55] LABS: ANION GAP 11 (8-16); BLOOD UREA NITROGEN 9 mg/dl (7-20); CALCIUM 8.2 mg/dl (8.4-10.2); CARBON DIOXIDE 24 mmol/L (21-31); CHLORIDE 112 mmol/L (97-110); CREATININE 0.82 mg/dl (0.61-1.24); GLUCOSE 99 mg/dl (70-220); POTASSIUM 3.8 mmol/L (3.5-5.1); SODIUM 143 mmol/L (135-144)
[2017-11-21] MEDS: RISPERIDONE 1 MG TAB PO ×2 (09:00→20:06)
[2017-11-21] MEDS: DILTIAZEM (CD) 240 MG CAP PO ×2 (09:00→09:31)
[2017-11-21] MEDS: CEFTRIAXONE 1 GM/50 ML (PMX) 50 ML IVPB (09:25)
[2017-11-21] MEDS: POLYETHYLENE GLYCOL 17 GM PACKET PO (09:32)
[2017-11-21] MEDS: DOCUSATE SODIUM 250 MG CAP PO (09:32)
[2017-11-21] MEDS: oxyCODONE (CR) 40 MG TAB [oxyCONTIN] PO ×2 (09:34→20:03)
[2017-11-21] MEDS: ENOXAPARIN 40 MG/0.4 ML SYG SC (09:35)
[2017-11-21] MEDS: DICLOFENAC SODIUM 1% GEL 100 GM TUBE TP ×3 (09:36→20:20)
[2017-11-21] MEDS: NICOTINE (14 MG/24 HR) PATCH TRANSDERM (09:36)
[2017-11-21] MEDS: CEFEPIME 1GM/50 ML (PMX) 50 ML IVPB ×2 (11:27→20:06)
[2017-11-21] MEDS: METOPROLOL (XL) 50 MG TAB PO (20:04)
[2017-11-22] MEDS: hydrALAzine 20 MG INJ IV ×3 (02:20→15:00)
[2017-11-22] MEDS: LACTULOSE 30ML CUP PO (05:59)
[2017-11-22] MEDS: PANTOPRAZOLE 40 MG INJ IV (05:59)
[2017-11-22] MEDS: HYDROmorphONE 2 MG TAB PO ×2 (06:00→16:25)
[2017-11-22] MEDS: ENALAPRILAT 1.25 MG INJ IV (07:43)
[2017-11-22] MEDS: DILTIAZEM (CD) 240 MG CAP PO (08:43)
[2017-11-22] MEDS: ENOXAPARIN 40 MG/0.4 ML SYG SC (08:46)
[2017-11-22] MEDS: POLYETHYLENE GLYCOL 17 GM PACKET PO (08:46)
[2017-11-22] MEDS: DICLOFENAC SODIUM 1% GEL 100 GM TUBE TP ×3 (08:47→20:24)
[2017-11-22] MEDS: CEFEPIME 1GM/50 ML (PMX) 50 ML IVPB ×2 (08:47→20:24)
[2017-11-22] MEDS: DOCUSATE SODIUM 250 MG CAP PO (08:47)
[2017-11-22] MEDS: NICOTINE (14 MG/24 HR) PATCH TRANSDERM (08:47)
[2017-11-22] MEDS: oxyCODONE (CR) 40 MG TAB [oxyCONTIN] PO ×2 (08:47→20:25)
[2017-11-22] MEDS: RISPERIDONE 1 MG TAB PO ×2 (08:47→20:28)
[2017-11-22] MEDS: LISINOPRIL 20 MG TAB PO (14:34)
[2017-11-22] MEDS: METOPROLOL (XL) 50 MG TAB PO (20:25)
[2017-11-22] MEDS: hydrOXYzine HCL 25 MG TAB PO (23:22)
[2017-11-23] MEDS: PANTOPRAZOLE 40 MG INJ IV (05:43)
[2017-11-23] MEDS: HYDROmorphONE 2 MG TAB PO ×2 (07:46→17:48)
[2017-11-23] MEDS: hydrALAzine 20 MG INJ IV (08:35)
[2017-11-23] MEDS: CEFEPIME 1GM/50 ML (PMX) 50 ML IVPB ×2 (08:37→20:33)
[2017-11-23] MEDS: POLYETHYLENE GLYCOL 17 GM PACKET PO (08:38)
[2017-11-23] MEDS: ENOXAPARIN 40 MG/0.4 ML SYG SC (08:39)
[2017-11-23] MEDS: DOCUSATE SODIUM 250 MG CAP PO (08:39)
[2017-11-23] MEDS: NICOTINE (14 MG/24 HR) PATCH TRANSDERM (08:39)
[2017-11-23] MEDS: LISINOPRIL 20 MG TAB PO (08:40)
[2017-11-23] MEDS: oxyCODONE (CR) 40 MG TAB [oxyCONTIN] PO ×2 (08:40→20:33)
[2017-11-23] MEDS: DICLOFENAC SODIUM 1% GEL 100 GM TUBE TP ×3 (08:41→20:33)
[2017-11-23] MEDS: RISPERIDONE 1 MG TAB PO ×2 (08:53→21:00)
[2017-11-23] MEDS: DIPHENHYDRAMINE 25 MG CAP PO ×2 (13:36→21:04)
[2017-11-23] MEDS: METOPROLOL (XL) 50 MG TAB PO (20:41)
[2017-11-23] MEDS: ENALAPRILAT 1.25 MG INJ IV (22:35)
[2017-11-23] MEDS: NITROGLYCERIN (SL) 0.4 MG TAB SL (23:34)
[2017-11-24] MEDS: AMLODIPINE 10 MG TAB PO (00:58)
[2017-11-24] MEDS: RISPERIDONE 1 MG TAB PO ×2 (09:00→20:49)
[2017-11-24] MEDS: POLYETHYLENE GLYCOL 17 GM PACKET PO (09:00)
[2017-11-24] MEDS: oxyCODONE (CR) 40 MG TAB [oxyCONTIN] PO ×2 (09:02→20:45)
[2017-11-24] MEDS: CEFEPIME 1GM/50 ML (PMX) 50 ML IVPB ×2 (09:02→20:43)
[2017-11-24] MEDS: DOCUSATE SODIUM 250 MG CAP PO (09:03)
[2017-11-24] MEDS: NICOTINE (14 MG/24 HR) PATCH TRANSDERM (09:03)
[2017-11-24] MEDS: DICLOFENAC SODIUM 1% GEL 100 GM TUBE TP ×3 (09:03→20:46)
[2017-11-24] MEDS: LISINOPRIL 20 MG TAB PO (09:03)
[2017-11-24] MEDS: ENOXAPARIN 40 MG/0.4 ML SYG SC (09:12)
[2017-11-24] MEDS: HYDROmorphONE 2 MG TAB PO (10:48)
[2017-11-24] MEDS: DIPHENHYDRAMINE 25 MG CAP PO ×2 (12:14→20:56)
[2017-11-24] MEDS: CLONIDINE 0.3 MG/24 HR PATCH TRANSDERM (16:17)
[2017-11-24] MEDS: DILTIAZEM (CD) 240 MG CAP PO ×2 (17:30→17:48)
[2017-11-24] MEDS: ENALAPRILAT 1.25 MG INJ IV ×2 (17:54→23:56)
[2017-11-24] MEDS: METOPROLOL (XL) 50 MG TAB PO (20:46)
[2017-11-25 06:36] LABS: ADD MAN DIFF? NO
[2017-11-25 06:41] LABS: BASOPHILS % 0.9 % (0.0-2.0); EOSINOPHILS # 0.2 10^3/ul (0.0-0.5); EOSINOPHILS % 3.9 % (0.0-7.0); HEMATOCRIT 33.9 % (42.0-52.0); HEMOGLOBIN 11.7 g/dl (14.0-18.0); LYMPHOCYTES % 46.6 % (15.0-51.0); MEAN CORPUSCULAR HEMOGLOBIN 32.6 pg (29.0-33.0); MEAN CORPUSCULAR HGB CONC 34.5 g/dl (32.0-37.0); MEAN CORPUSCULAR VOLUME 94.4 fl (82.0-101.0); MEAN PLATELET VOLUME 10.7 fl (7.4-10.4); MONOCYTE # 0.6 10^3/ul (0.3-0.9); MONOCYTES % 13.2 % (0.0-11.0); NEUTROPHIL # 1.5 10^3/ul (1.6-7.5); NEUTROPHILS % 35.2 % (39.0-77.0); PLATELET COUNT 236 10^3/UL (140-415); RED BLOOD COUNT 3.59 10^6/ul (4.70-6.10); RED CELL DISTRIBUTION WIDTH 13.6 % (11.5-14.5)
[2017-11-25 06:41] LABS: WHITE BLOOD COUNT 4.4 10^3/ul (4.8-10.8)
[2017-11-25 07:07] LABS: ANION GAP 11 (8-16); BLOOD UREA NITROGEN 15 mg/dl (7-20); CALCIUM 9.1 mg/dl (8.4-10.2); CARBON DIOXIDE 27 mmol/L (21-31); CHLORIDE 108 mmol/L (97-110); CREATININE 0.93 mg/dl (0.61-1.24); GLUCOSE 103 mg/dl (70-220); MAGNESIUM 1.5 mg/dl (1.7-2.5); PHOSPHORUS 5.4 mg/dl (2.5-4.9); POTASSIUM 3.7 mmol/L (3.5-5.1); SODIUM 142 mmol/L (135-144)
[2017-11-25] MEDS: DOCUSATE SODIUM 250 MG CAP PO (08:24)
[2017-11-25] MEDS: LISINOPRIL 20 MG TAB PO ×2 (08:24→20:28)
[2017-11-25] MEDS: CEFEPIME 1GM/50 ML (PMX) 50 ML IVPB ×2 (08:24→20:29)
[2017-11-25] MEDS: RISPERIDONE 1 MG TAB PO ×3 (08:24→20:29)
[2017-11-25] MEDS: oxyCODONE (CR) 40 MG TAB [oxyCONTIN] PO ×2 (08:24→20:28)
[2017-11-25] MEDS: DICLOFENAC SODIUM 1% GEL 100 GM TUBE TP ×3 (08:25→20:30)
[2017-11-25] MEDS: NICOTINE (14 MG/24 HR) PATCH TRANSDERM (08:25)
[2017-11-25] MEDS: POLYETHYLENE GLYCOL 17 GM PACKET PO (08:26)
[2017-11-25] MEDS: DILTIAZEM (CD) 240 MG CAP PO (08:26)
[2017-11-25] MEDS: ENOXAPARIN 40 MG/0.4 ML SYG SC (08:27)
[2017-11-25] MEDS: HYDROCHLOROTHIAZIDE 25 MG TAB PO (10:10)
[2017-11-25] MEDS: MAGNESIUM SULFATE 2 GM/50 ML 50 ML IVPB (10:55)
[2017-11-25 12:23] LABS: ADD UMIC YES; UR ASCORBIC ACID NEGATIVE (NEGATIVE); UR BACTERIA FEW /HPF (NONE SEEN); UR BILIRUBIN (Dip) NEGATIVE (NEGATIVE); UR BLOOD (Dip) NEGATIVE (NEGATIVE); UR CLARITY CLEAR (CLEAR); UR COLOR YELLOW (YELLOW); UR GLUCOSE (Dip) NEGATIVE (NEGATIVE); UR KETONES (Dip) NEGATIVE (NEGATIVE); UR LEUKOCYTE ESTERASE (Dip) NEGATIVE Leu/ul (NEGATIVE); UR MUCUS FEW /HPF (NONE SEEN); UR NITRITE (Dip) NEGATIVE (NEGATIVE); UR RBC 6 /HPF (0-5); UR SPECIFIC GRAVITY (Dip) 1.017 (1.003-1.030); UR TOTAL PROTEIN (Dip) 3+ mg/dl (NEGATIVE); UR UROBILINOGEN (Dip) NEGATIVE (NEGATIVE); UR WBC 16 /HPF (0-5)
[2017-11-25 12:52] LABS: SODIUM,URINE RANDOM 92 mmol/L (30-90)
[2017-11-25 12:52] LABS: CREATININE,URINE RANDOM 149.46 mg/dl (20-370)
[2017-11-25] MEDS: METOPROLOL (XL) 50 MG TAB PO (20:29)
[2017-11-25] MEDS: NIFEdipine (XL) 30 MG TAB PO (20:29)
[2017-11-25] MEDS: DIPHENHYDRAMINE 25 MG CAP PO (20:38)
[2017-11-25] MEDS: HYDROmorphONE 2 MG TAB PO (21:44)
[2017-11-26 06:29] LABS: ADD MAN DIFF? NO
[2017-11-26 06:42] LABS: BASOPHIL # 0.1 10^3/ul (0.0-0.1); EOSINOPHILS # 0.2 10^3/ul (0.0-0.5); EOSINOPHILS % 3.6 % (0.0-7.0); HEMATOCRIT 37.1 % (42.0-52.0); HEMOGLOBIN 12.5 g/dl (14.0-18.0); LYMPHOCYTES # 2.2 10^3/ul (0.8-2.9); LYMPHOCYTES % 42.5 % (15.0-51.0); MEAN CORPUSCULAR HEMOGLOBIN 31.7 pg (29.0-33.0); MEAN CORPUSCULAR HGB CONC 33.7 g/dl (32.0-37.0); MEAN CORPUSCULAR VOLUME 94.2 fl (82.0-101.0); MEAN PLATELET VOLUME 10.8 fl (7.4-10.4); MONOCYTE # 0.6 10^3/ul (0.3-0.9); NEUTROPHIL # 2.2 10^3/ul (1.6-7.5); NEUTROPHILS % 41.7 % (39.0-77.0); PLATELET COUNT 251 10^3/UL (140-415); RED BLOOD COUNT 3.94 10^6/ul (4.70-6.10); RED CELL DISTRIBUTION WIDTH 13.6 % (11.5-14.5)
[2017-11-26 06:42] LABS: WHITE BLOOD COUNT 5.3 10^3/ul (4.8-10.8)
[2017-11-26 07:17] LABS: ANION GAP 11 (8-16); BLOOD UREA NITROGEN 17 mg/dl (7-20); CALCIUM 9.3 mg/dl (8.4-10.2); CARBON DIOXIDE 27 mmol/L (21-31); CHLORIDE 107 mmol/L (97-110); CREATININE 0.79 mg/dl (0.61-1.24); GLUCOSE 97 mg/dl (70-220); MAGNESIUM 1.5 mg/dl (1.7-2.5); PHOSPHORUS 5.4 mg/dl (2.5-4.9); POTASSIUM 3.7 mmol/L (3.5-5.1); SODIUM 141 mmol/L (135-144)
[2017-11-26] MEDS: CEFEPIME 1GM/50 ML (PMX) 50 ML IVPB ×2 (08:30→20:02)
[2017-11-26] MEDS: NICOTINE (14 MG/24 HR) PATCH TRANSDERM (08:30)
[2017-11-26] MEDS: HYDROmorphONE 2 MG TAB PO ×2 (08:30→12:53)
[2017-11-26] MEDS: DOCUSATE SODIUM 250 MG CAP PO (08:30)
[2017-11-26] MEDS: POLYETHYLENE GLYCOL 17 GM PACKET PO (08:30)
[2017-11-26] MEDS: HYDROCHLOROTHIAZIDE 25 MG TAB PO ×4 (08:31→09:46)
[2017-11-26] MEDS: LISINOPRIL 20 MG TAB PO ×2 (08:32→21:00)
[2017-11-26] MEDS: NIFEdipine (XL) 30 MG TAB PO (08:33)
[2017-11-26] MEDS: DICLOFENAC SODIUM 1% GEL 100 GM TUBE TP ×3 (08:35→20:04)
[2017-11-26] MEDS: ENOXAPARIN 40 MG/0.4 ML SYG SC (08:35)
[2017-11-26] MEDS: RISPERIDONE 1 MG TAB PO ×2 (08:37→20:08)
[2017-11-26] MEDS: NIFEdipine (XL) 60 MG TAB PO ×2 (09:46→21:00)
[2017-11-26] MEDS: oxyCODONE (CR) 40 MG TAB [oxyCONTIN] PO ×2 (09:46→20:05)
[2017-11-26] MEDS: MAGNESIUM SULFATE 2 GM/50 ML 50 ML IVPB (11:04)
[2017-11-26] MEDS: SPIRONOLACTONE 25 MG TAB NGT (12:54)
[2017-11-26] MEDS: ISOSORBIDE MONONITRATE(SR)30 MG TAB PO (12:54)
[2017-11-26] MEDS ORDERED: MAGNESIUM SULFATE 3 GM in DEXTROSE 5% 100 ML IVPB (14:00)
[2017-11-26 16:06] LABS: CREATININE, RANDOM URINE 171 mg/dL (20-370); MICROALBUMIN 265.4 mg/dL; MICROALBUMIN/CREATININE RATIO 1552 (<30)
[2017-11-26] MEDS: METOPROLOL (XL) 50 MG TAB PO (21:00)
[2017-11-27] MEDS: LACTULOSE 30ML CUP GTB ×4 (00:14→17:56)
[2017-11-27] MEDS: DIPHENHYDRAMINE 25 MG CAP PO ×2 (06:11→20:55)
[2017-11-27] MEDS: NIFEdipine (XL) 60 MG TAB PO ×2 (08:34→21:00)
[2017-11-27] MEDS: NICOTINE (14 MG/24 HR) PATCH TRANSDERM (08:34)
[2017-11-27] MEDS: POLYETHYLENE GLYCOL 17 GM PACKET PO (08:35)
[2017-11-27] MEDS: SPIRONOLACTONE 25 MG TAB NGT (08:35)
[2017-11-27] MEDS: RISPERIDONE 1 MG TAB PO ×3 (08:35→21:00)
[2017-11-27] MEDS: oxyCODONE (CR) 40 MG TAB [oxyCONTIN] PO ×2 (08:35→20:56)
[2017-11-27] MEDS: ISOSORBIDE MONONITRATE(SR)30 MG TAB PO (08:35)
[2017-11-27] MEDS: ENOXAPARIN 40 MG/0.4 ML SYG SC (08:36)
[2017-11-27] MEDS: DOCUSATE SODIUM 250 MG CAP PO (08:36)
[2017-11-27] MEDS: HYDROCHLOROTHIAZIDE 25 MG TAB PO (08:36)
[2017-11-27] MEDS: LISINOPRIL 20 MG TAB PO ×2 (08:36→21:00)
[2017-11-27] MEDS: DICLOFENAC SODIUM 1% GEL 100 GM TUBE TP ×3 (08:37→21:00)
[2017-11-27] MEDS: CEFEPIME 1GM/50 ML (PMX) 50 ML IVPB ×2 (08:42→21:12)
[2017-11-27 08:54] LABS: ADD MAN DIFF? NO
[2017-11-27 08:59] LABS: WHITE BLOOD COUNT 5.8 10^3/ul (4.8-10.8)
[2017-11-27 08:59] LABS: BASOPHILS % 0.7 % (0.0-2.0); EOSINOPHILS # 0.2 10^3/ul (0.0-0.5); EOSINOPHILS % 2.8 % (0.0-7.0); HEMATOCRIT 36.5 % (42.0-52.0); HEMOGLOBIN 12.4 g/dl (14.0-18.0); LYMPHOCYTES # 2.2 10^3/ul (0.8-2.9); MEAN CORPUSCULAR HEMOGLOBIN 31.8 pg (29.0-33.0); MEAN CORPUSCULAR VOLUME 93.6 fl (82.0-101.0); MEAN PLATELET VOLUME 11.7 fl (7.4-10.4); MONOCYTE # 0.6 10^3/ul (0.3-0.9); MONOCYTES % 9.5 % (0.0-11.0); NEUTROPHIL # 2.8 10^3/ul (1.6-7.5); NEUTROPHILS % 48.8 % (39.0-77.0); PLATELET COUNT 239 10^3/UL (140-415); RED CELL DISTRIBUTION WIDTH 13.4 % (11.5-14.5)
[2017-11-27 09:34] LABS: ANION GAP 13 (8-16); BLOOD UREA NITROGEN 22 mg/dl (7-20); CALCIUM 9.3 mg/dl (8.4-10.2); CARBON DIOXIDE 26 mmol/L (21-31); CHLORIDE 106 mmol/L (97-110); CREATININE 1.03 mg/dl (0.61-1.24); GLUCOSE 103 mg/dl (70-220); MAGNESIUM 1.7 mg/dl (1.7-2.5); PHOSPHORUS 4.8 mg/dl (2.5-4.9); POTASSIUM 3.8 mmol/L (3.5-5.1); SODIUM 141 mmol/L (135-144)
[2017-11-27] MEDS ORDERED: NICOTINE POLACRILEX 2 MG GUM BUCCAL (14:30)
[2017-11-27 17:46] LABS: ALDOSTERONE 3 ng/dL
[2017-11-27] MEDS: METOPROLOL (XL) 50 MG TAB PO (21:00)
[2017-11-27] MEDS: HYDROmorphONE 2 MG TAB PO (21:46)
[2017-11-27] MEDS: QUETIAPINE 25 MG TAB PO (22:00)
[2017-11-28] MEDS: FAMOTIDINE 20 MG TAB PO ×3 (01:22→20:24)
[2017-11-28] MEDS: NIFEdipine (XL) 60 MG TAB PO ×3 (01:29→20:22)
[2017-11-28] MEDS: POLYETHYLENE GLYCOL 17 GM PACKET PO (08:54)
[2017-11-28] MEDS: SPIRONOLACTONE 25 MG TAB NGT (08:54)
[2017-11-28] MEDS: DOCUSATE SODIUM 250 MG CAP PO (08:54)
[2017-11-28] MEDS: oxyCODONE (CR) 40 MG TAB [oxyCONTIN] PO ×2 (08:54→20:23)
[2017-11-28] MEDS: LISINOPRIL 20 MG TAB PO ×2 (08:55→20:22)
[2017-11-28] MEDS: ISOSORBIDE MONONITRATE(SR)30 MG TAB PO (08:56)
[2017-11-28] MEDS: HYDROCHLOROTHIAZIDE 25 MG TAB PO (08:56)
[2017-11-28] MEDS: DICLOFENAC SODIUM 1% GEL 100 GM TUBE TP ×3 (09:00→21:28)
[2017-11-28] MEDS: RISPERIDONE 1 MG TAB PO ×2 (09:00→20:24)
[2017-11-28] MEDS: ENOXAPARIN 40 MG/0.4 ML SYG SC (09:00)
[2017-11-28] MEDS: CEFEPIME 1GM/50 ML (PMX) 50 ML IVPB (10:00)
[2017-11-28] MEDS: NICOTINE (21 MG/24 HR) PATCH TRANSDERM (10:14)
[2017-11-28 14:53] LABS: ADD MAN DIFF? NO
[2017-11-28 15:13] LABS: BASOPHIL # 0.1 10^3/ul (0.0-0.1); EOSINOPHILS # 0.2 10^3/ul (0.0-0.5); EOSINOPHILS % 2.8 % (0.0-7.0); HEMATOCRIT 36.9 % (42.0-52.0); HEMOGLOBIN 12.7 g/dl (14.0-18.0); LYMPHOCYTES # 3.2 10^3/ul (0.8-2.9); LYMPHOCYTES % 41.7 % (15.0-51.0); MEAN CORPUSCULAR HEMOGLOBIN 32.2 pg (29.0-33.0); MEAN CORPUSCULAR HGB CONC 34.4 g/dl (32.0-37.0); MEAN CORPUSCULAR VOLUME 93.4 fl (82.0-101.0); MEAN PLATELET VOLUME 10.4 fl (7.4-10.4); MONOCYTE # 0.7 10^3/ul (0.3-0.9); MONOCYTES % 9.7 % (0.0-11.0); NEUTROPHIL # 3.4 10^3/ul (1.6-7.5); NEUTROPHILS % 44.7 % (39.0-77.0); PLATELET COUNT 296 10^3/UL (140-415); RED BLOOD COUNT 3.95 10^6/ul (4.70-6.10)
[2017-11-28 15:13] LABS: WHITE BLOOD COUNT 7.6 10^3/ul (4.8-10.8)
[2017-11-28 15:23] LABS: ANION GAP 13 (8-16); BLOOD UREA NITROGEN 18 mg/dl (7-20); CALCIUM 9.5 mg/dl (8.4-10.2); CARBON DIOXIDE 27 mmol/L (21-31); CHLORIDE 105 mmol/L (97-110); CREATININE 0.97 mg/dl (0.61-1.24); GLUCOSE 116 mg/dl (70-220); MAGNESIUM 1.6 mg/dl (1.7-2.5); PHOSPHORUS 4.6 mg/dl (2.5-4.9); POTASSIUM 4.1 mmol/L (3.5-5.1); SODIUM 141 mmol/L (135-144)
[2017-11-28] MEDS: HYDROmorphONE 2 MG TAB PO (17:57)
[2017-11-28] MEDS: METOPROLOL (XL) 50 MG TAB PO (20:23)
[2017-11-28] MEDS: DIPHENHYDRAMINE 25 MG CAP PO (21:28)
[2017-11-29] MEDS: HYDROmorphONE 2 MG TAB PO ×2 (00:55→15:32)
[2017-11-29] MEDS: RISPERIDONE 1 MG TAB PO ×3 (09:00→21:00)
[2017-11-29] MEDS: ENOXAPARIN 40 MG/0.4 ML SYG SC (09:20)
[2017-11-29] MEDS: DICLOFENAC SODIUM 1% GEL 100 GM TUBE TP ×3 (09:20→21:16)
[2017-11-29] MEDS: DOCUSATE SODIUM 250 MG CAP PO (09:20)
[2017-11-29] MEDS: FAMOTIDINE 20 MG TAB PO ×2 (09:21→21:00)
[2017-11-29] MEDS: HYDROCHLOROTHIAZIDE 25 MG TAB PO (09:21)
[2017-11-29] MEDS: ISOSORBIDE MONONITRATE(SR)30 MG TAB PO (09:21)
[2017-11-29] MEDS: NIFEdipine (XL) 60 MG TAB PO (09:21)
[2017-11-29] MEDS: POLYETHYLENE GLYCOL 17 GM PACKET PO (09:22)
[2017-11-29] MEDS: oxyCODONE (CR) 40 MG TAB [oxyCONTIN] PO ×2 (09:22→21:16)
[2017-11-29] MEDS: LISINOPRIL 20 MG TAB PO ×2 (09:22→21:15)
[2017-11-29] MEDS: NICOTINE (21 MG/24 HR) PATCH TRANSDERM (09:22)
[2017-11-29] MEDS: SPIRONOLACTONE 25 MG TAB NGT (09:22)
[2017-11-29] MEDS: NIFEdipine (XL) 90 MG TAB PO (21:15)
[2017-11-29] MEDS: METOPROLOL (XL) 50 MG TAB PO (21:15)
[2017-11-29] MEDS: DIPHENHYDRAMINE 25 MG CAP PO (21:21)
[2017-11-30 00:02] LABS: RENIN, PLASMA 0.15 ng/mL/h (0.25-5.82)
[2017-11-30] MEDS: HYDROmorphONE 2 MG TAB PO ×2 (00:09→05:23)
[2017-11-30 06:17] LABS: ADD MAN DIFF? NO
[2017-11-30 06:25] LABS: WHITE BLOOD COUNT 6.2 10^3/ul (4.8-10.8)
[2017-11-30 06:25] LABS: BASOPHIL # 0.1 10^3/ul (0.0-0.1); BASOPHILS % 1.5 % (0.0-2.0); EOSINOPHILS # 0.3 10^3/ul (0.0-0.5); EOSINOPHILS % 4.2 % (0.0-7.0); HEMATOCRIT 35.5 % (42.0-52.0); HEMOGLOBIN 12.3 g/dl (14.0-18.0); LYMPHOCYTES # 3.1 10^3/ul (0.8-2.9); LYMPHOCYTES % 50.5 % (15.0-51.0); MEAN CORPUSCULAR HEMOGLOBIN 31.8 pg (29.0-33.0); MEAN CORPUSCULAR HGB CONC 34.6 g/dl (32.0-37.0); MEAN CORPUSCULAR VOLUME 91.7 fl (82.0-101.0); MEAN PLATELET VOLUME 10.9 fl (7.4-10.4); MONOCYTE # 0.6 10^3/ul (0.3-0.9); MONOCYTES % 10.1 % (0.0-11.0); NEUTROPHIL # 2.1 10^3/ul (1.6-7.5); NEUTROPHILS % 33.5 % (39.0-77.0); PLATELET COUNT 321 10^3/UL (140-415); RED BLOOD COUNT 3.87 10^6/ul (4.70-6.10); RED CELL DISTRIBUTION WIDTH 12.6 % (11.5-14.5)
[2017-11-30 07:06] LABS: ANION GAP 13 (8-16); BLOOD UREA NITROGEN 27 mg/dl (7-20); CARBON DIOXIDE 31 mmol/L (21-31); CHLORIDE 101 mmol/L (97-110); GLUCOSE 103 mg/dl (70-220); MAGNESIUM 1.5 mg/dl (1.7-2.5); POTASSIUM 3.7 mmol/L (3.5-5.1); SODIUM 141 mmol/L (135-144)
[2017-11-30] MEDS: oxyCODONE (CR) 40 MG TAB [oxyCONTIN] PO ×2 (09:00→20:47)
[2017-11-30] MEDS: RISPERIDONE 1 MG TAB PO ×2 (09:00→21:00)
[2017-11-30] MEDS: NICOTINE (21 MG/24 HR) PATCH TRANSDERM (09:00)
[2017-11-30] MEDS: DOCUSATE SODIUM 250 MG CAP PO (09:01)
[2017-11-30] MEDS: NIFEdipine (XL) 90 MG TAB PO ×2 (09:01→20:48)
[2017-11-30] MEDS: ISOSORBIDE MONONITRATE(SR)30 MG TAB PO (09:01)
[2017-11-30] MEDS: FAMOTIDINE 20 MG TAB PO ×2 (09:01→20:47)
[2017-11-30] MEDS: POLYETHYLENE GLYCOL 17 GM PACKET PO (09:01)
[2017-11-30] MEDS: SPIRONOLACTONE 25 MG TAB NGT (09:01)
[2017-11-30] MEDS: HYDROCHLOROTHIAZIDE 25 MG TAB PO (09:01)
[2017-11-30] MEDS: LISINOPRIL 20 MG TAB PO ×2 (09:01→20:50)
[2017-11-30] MEDS: ENOXAPARIN 40 MG/0.4 ML SYG SC (09:02)
[2017-11-30] MEDS: DICLOFENAC SODIUM 1% GEL 100 GM TUBE TP ×3 (09:38→20:48)
[2017-11-30] MEDS: MAGNESIUM SULFATE 2 GM/50 ML 50 ML IVPB (11:43)
[2017-11-30] MEDS: LACTULOSE 30ML CUP PO (11:50)
[2017-11-30 12:07] LABS: CHOLESTEROL 210 mg/dl (100-200)
[2017-11-30 12:07] LABS: HDL CHOLESTEROL 30 mg/dl (31-75); LDL CHOLESTEROL,CALCULATED 130 mg/dl; TRIGLYCERIDES 251 mg/dl (0-149)
[2017-11-30] MEDS: METOPROLOL (XL) 50 MG TAB PO (20:47)
[2017-11-30] MEDS: DIPHENHYDRAMINE 25 MG CAP PO (20:50)
[2017-12-01] MEDS: ISOSORBIDE MONONITRATE(SR)30 MG TAB PO (08:43)
[2017-12-01] MEDS: NIFEdipine (XL) 90 MG TAB PO ×2 (08:43→21:08)
[2017-12-01] MEDS: DICLOFENAC SODIUM 1% GEL 100 GM TUBE TP ×3 (08:43→21:09)
[2017-12-01] MEDS: LISINOPRIL 20 MG TAB PO ×2 (08:43→21:07)
[2017-12-01] MEDS: DOCUSATE SODIUM 250 MG CAP PO (08:43)
[2017-12-01] MEDS: SPIRONOLACTONE 25 MG TAB NGT (08:43)
[2017-12-01] MEDS: FAMOTIDINE 20 MG TAB PO ×2 (08:43→21:07)
[2017-12-01] MEDS: oxyCODONE (CR) 40 MG TAB [oxyCONTIN] PO ×2 (08:43→21:07)
[2017-12-01] MEDS: HYDROCHLOROTHIAZIDE 25 MG TAB PO (08:43)
[2017-12-01] MEDS: POLYETHYLENE GLYCOL 17 GM PACKET PO (08:44)
[2017-12-01] MEDS: NICOTINE (21 MG/24 HR) PATCH TRANSDERM (08:44)
[2017-12-01] MEDS: ENOXAPARIN 40 MG/0.4 ML SYG SC (08:46)
[2017-12-01] MEDS: RISPERIDONE 1 MG TAB PO ×2 (08:47→21:00)
[2017-12-01] MEDS: HYDROmorphONE 2 MG TAB PO (12:07)
[2017-12-01] MEDS: CLONIDINE 0.3 MG/24 HR PATCH TRANSDERM (16:13)
[2017-12-01] MEDS: METOPROLOL (XL) 50 MG TAB PO (21:08)
[2017-12-01] MEDS: DIPHENHYDRAMINE 25 MG CAP PO (21:15)
[2017-12-02] MEDS: HYDROmorphONE 2 MG TAB PO ×3 (03:53→18:24)
[2017-12-02 07:36] LABS: ADD MAN DIFF? NO
[2017-12-02 07:41] LABS: WHITE BLOOD COUNT 6.8 10^3/ul (4.8-10.8)
[2017-12-02 07:41] LABS: BASOPHIL # 0.1 10^3/ul (0.0-0.1); BASOPHILS % 1.5 % (0.0-2.0); EOSINOPHILS # 0.3 10^3/ul (0.0-0.5); EOSINOPHILS % 4.3 % (0.0-7.0); HEMATOCRIT 40.4 % (42.0-52.0); HEMOGLOBIN 13.9 g/dl (14.0-18.0); LYMPHOCYTES # 3.1 10^3/ul (0.8-2.9); LYMPHOCYTES % 45.2 % (15.0-51.0); MEAN CORPUSCULAR HEMOGLOBIN 31.8 pg (29.0-33.0); MEAN CORPUSCULAR HGB CONC 34.4 g/dl (32.0-37.0); MEAN CORPUSCULAR VOLUME 92.4 fl (82.0-101.0); MEAN PLATELET VOLUME 11.2 fl (7.4-10.4); MONOCYTE # 0.6 10^3/ul (0.3-0.9); MONOCYTES % 9.3 % (0.0-11.0); NEUTROPHIL # 2.7 10^3/ul (1.6-7.5); NEUTROPHILS % 39.6 % (39.0-77.0); PLATELET COUNT 308 10^3/UL (140-415); RED BLOOD COUNT 4.37 10^6/ul (4.70-6.10); RED CELL DISTRIBUTION WIDTH 12.9 % (11.5-14.5)
[2017-12-02 08:01] LABS: ANION GAP 15 (8-16); BLOOD UREA NITROGEN 26 mg/dl (7-20); CALCIUM 9.8 mg/dl (8.4-10.2); CARBON DIOXIDE 28 mmol/L (21-31); CHLORIDE 106 mmol/L (97-110); CREATININE 1.05 mg/dl (0.61-1.24); GLUCOSE 104 mg/dl (70-220); POTASSIUM 3.8 mmol/L (3.5-5.1); SODIUM 145 mmol/L (135-144)
[2017-12-02] MEDS: POLYETHYLENE GLYCOL 17 GM PACKET PO (09:00)
[2017-12-02] MEDS: DOCUSATE SODIUM 250 MG CAP PO (09:00)
[2017-12-02] MEDS: RISPERIDONE 1 MG TAB PO ×3 (09:00→21:32)
[2017-12-02] MEDS: SPIRONOLACTONE 25 MG TAB NGT (09:00)
[2017-12-02] MEDS: HYDROCHLOROTHIAZIDE 25 MG TAB PO (09:20)
[2017-12-02] MEDS: ISOSORBIDE MONONITRATE(SR)30 MG TAB PO (09:20)
[2017-12-02] MEDS: LISINOPRIL 20 MG TAB PO ×2 (09:20→21:28)
[2017-12-02] MEDS: NIFEdipine (XL) 90 MG TAB PO ×2 (09:21→21:29)
[2017-12-02] MEDS: oxyCODONE (CR) 40 MG TAB [oxyCONTIN] PO ×2 (09:21→21:29)
[2017-12-02] MEDS: FAMOTIDINE 20 MG TAB PO ×2 (09:21→21:28)
[2017-12-02] MEDS: DICLOFENAC SODIUM 1% GEL 100 GM TUBE TP ×3 (09:22→21:28)
[2017-12-02] MEDS: NICOTINE (21 MG/24 HR) PATCH TRANSDERM (09:22)
[2017-12-02] MEDS: ENOXAPARIN 40 MG/0.4 ML SYG SC (09:30)
[2017-12-02] MEDS: DIPHENHYDRAMINE 25 MG CAP PO (14:27)
[2017-12-02] MEDS: METOPROLOL (XL) 50 MG TAB PO (21:29)
[2017-12-03] MEDS: LISINOPRIL 20 MG TAB PO ×2 (09:00→21:00)
[2017-12-03] MEDS: ENOXAPARIN 40 MG/0.4 ML SYG SC (09:41)
[2017-12-03] MEDS: POLYETHYLENE GLYCOL 17 GM PACKET PO (09:42)
[2017-12-03] MEDS: DOCUSATE SODIUM 250 MG CAP PO (09:42)
[2017-12-03] MEDS: NIFEdipine (XL) 90 MG TAB PO ×2 (09:43→21:17)
[2017-12-03] MEDS: NICOTINE (21 MG/24 HR) PATCH TRANSDERM (09:43)
[2017-12-03] MEDS: oxyCODONE (CR) 40 MG TAB [oxyCONTIN] PO ×2 (09:43→21:18)
[2017-12-03] MEDS: DICLOFENAC SODIUM 1% GEL 100 GM TUBE TP ×4 (09:45→21:18)
[2017-12-03] MEDS: ISOSORBIDE MONONITRATE(SR)30 MG TAB PO (09:48)
[2017-12-03] MEDS: SPIRONOLACTONE 25 MG TAB NGT (09:49)
[2017-12-03] MEDS: HYDROCHLOROTHIAZIDE 25 MG TAB PO (09:49)
[2017-12-03] MEDS: FAMOTIDINE 20 MG TAB PO ×2 (09:49→21:17)
[2017-12-03] MEDS: LACTULOSE 30ML CUP PO (10:31)
[2017-12-03] MEDS: HYDROmorphONE 2 MG TAB PO ×2 (13:08→18:38)
[2017-12-03] MEDS: RISPERIDONE 1 MG TAB PO (21:00)
[2017-12-03] MEDS: METOPROLOL (XL) 50 MG TAB PO (21:19)
[2017-12-03] MEDS: DIPHENHYDRAMINE 25 MG CAP PO (22:58)
[2017-12-04] MEDS: DICLOFENAC SODIUM 1% GEL 100 GM TUBE TP ×3 (09:00→21:30)
[2017-12-04] MEDS: POLYETHYLENE GLYCOL 17 GM PACKET PO (09:00)
[2017-12-04] MEDS: FAMOTIDINE 20 MG TAB PO ×2 (09:47→21:29)
[2017-12-04] MEDS: ISOSORBIDE MONONITRATE(SR)30 MG TAB PO (09:47)
[2017-12-04] MEDS: SPIRONOLACTONE 25 MG TAB NGT (09:47)
[2017-12-04] MEDS: RISPERIDONE 1 MG TAB PO ×3 (09:47→21:30)
[2017-12-04] MEDS: HYDROCHLOROTHIAZIDE 25 MG TAB PO (09:47)
[2017-12-04] MEDS: NIFEdipine (XL) 90 MG TAB PO ×2 (09:47→21:29)
[2017-12-04] MEDS: DOCUSATE SODIUM 250 MG CAP PO (09:48)
[2017-12-04] MEDS: oxyCODONE (CR) 40 MG TAB [oxyCONTIN] PO ×2 (09:48→21:28)
[2017-12-04] MEDS: LISINOPRIL 20 MG TAB PO ×2 (09:49→21:30)
[2017-12-04] MEDS: NICOTINE (21 MG/24 HR) PATCH TRANSDERM (09:50)
[2017-12-04] MEDS: ENOXAPARIN 40 MG/0.4 ML SYG SC (09:55)
[2017-12-04] MEDS: LACTULOSE 30ML CUP PO ×2 (12:03→21:32)
[2017-12-04 13:16] LABS: ADD MAN DIFF? NO
[2017-12-04 13:19] LABS: BASOPHIL # 0.1 10^3/ul (0.0-0.1); EOSINOPHILS # 0.2 10^3/ul (0.0-0.5); EOSINOPHILS % 2.6 % (0.0-7.0); HEMATOCRIT 39.1 % (42.0-52.0); HEMOGLOBIN 13.7 g/dl (14.0-18.0); LYMPHOCYTES % 37.2 % (15.0-51.0); MEAN CORPUSCULAR HEMOGLOBIN 32.1 pg (29.0-33.0); MEAN CORPUSCULAR VOLUME 91.6 fl (82.0-101.0); MEAN PLATELET VOLUME 10.8 fl (7.4-10.4); MONOCYTE # 0.7 10^3/ul (0.3-0.9); MONOCYTES % 8.8 % (0.0-11.0); NEUTROPHILS % 50.2 % (39.0-77.0); POSITIVE DIFF @See below; RED BLOOD COUNT 4.27 10^6/ul (4.70-6.10); RED CELL DISTRIBUTION WIDTH 12.6 % (11.5-14.5)
[2017-12-04 13:21] LABS: PLATELET COUNT 222 10^3/UL (140-415)
[2017-12-04] MEDS: BISACODYL (EC) 5 MG TAB PO ×2 (13:30→22:04)
[2017-12-04 13:36] LABS: ANION GAP 13 (8-16); BLOOD UREA NITROGEN 35 mg/dl (7-20); CALCIUM 8.9 mg/dl (8.4-10.2); CARBON DIOXIDE 27 mmol/L (21-31); CHLORIDE 104 mmol/L (97-110); CREATININE 1.65 mg/dl (0.61-1.24); GLUCOSE 111 mg/dl (70-220); POTASSIUM 4.2 mmol/L (3.5-5.1); SODIUM 140 mmol/L (135-144)
[2017-12-04] MEDS: HYDROmorphONE 2 MG TAB PO (14:23)
[2017-12-04] MEDS: METOPROLOL (XL) 50 MG TAB PO (21:29)
[2017-12-05] MEDS: POLYETHYLENE GLYCOL 17 GM PACKET PO (09:00)
[2017-12-05] MEDS: RISPERIDONE 1 MG TAB PO ×2 (09:00→20:53)
[2017-12-05] MEDS: DICLOFENAC SODIUM 1% GEL 100 GM TUBE TP ×3 (09:39→20:54)
[2017-12-05] MEDS: NICOTINE (21 MG/24 HR) PATCH TRANSDERM (09:39)
[2017-12-05] MEDS: LACTULOSE 30ML CUP PO (09:39)
[2017-12-05] MEDS: NIFEdipine (XL) 90 MG TAB PO ×2 (09:40→20:53)
[2017-12-05] MEDS: ISOSORBIDE MONONITRATE(SR)30 MG TAB PO (09:40)
[2017-12-05] MEDS: oxyCODONE (CR) 40 MG TAB [oxyCONTIN] PO ×2 (09:40→20:51)
[2017-12-05] MEDS: FAMOTIDINE 20 MG TAB PO (09:40)
[2017-12-05] MEDS: DOCUSATE SODIUM 250 MG CAP PO (09:40)
[2017-12-05] MEDS: HYDROCHLOROTHIAZIDE 25 MG TAB PO (09:40)
[2017-12-05] MEDS: SPIRONOLACTONE 25 MG TAB NGT (09:40)
[2017-12-05] MEDS: LISINOPRIL 20 MG TAB PO ×2 (09:41→20:53)
[2017-12-05] MEDS: ENOXAPARIN 40 MG/0.4 ML SYG SC (09:41)
[2017-12-05] MEDS: HYDROmorphONE 2 MG TAB PO (15:07)
[2017-12-05] MEDS: METOPROLOL (XL) 50 MG TAB PO (20:54)
[2017-12-06] MEDS: PANTOPRAZOLE (EC) 40 MG TAB PO (06:52)
[2017-12-06] MEDS: ENOXAPARIN 40 MG/0.4 ML SYG SC (08:59)
[2017-12-06] MEDS: DOCUSATE SODIUM 250 MG CAP PO (09:00)
[2017-12-06] MEDS: ISOSORBIDE MONONITRATE(SR)30 MG TAB PO (09:00)
[2017-12-06] MEDS: RISPERIDONE 1 MG TAB PO ×2 (09:00→21:00)
[2017-12-06] MEDS: DICLOFENAC SODIUM 1% GEL 100 GM TUBE TP ×2 (09:00→13:12)
[2017-12-06] MEDS: NICOTINE (21 MG/24 HR) PATCH TRANSDERM (09:00)
[2017-12-06] MEDS: HYDROCHLOROTHIAZIDE 25 MG TAB PO (09:01)
[2017-12-06] MEDS: SPIRONOLACTONE 25 MG TAB NGT (09:01)
[2017-12-06] MEDS: LISINOPRIL 20 MG TAB PO ×2 (09:01→22:01)
[2017-12-06] MEDS: oxyCODONE (CR) 40 MG TAB [oxyCONTIN] PO ×2 (09:01→22:00)
[2017-12-06] MEDS: NIFEdipine (XL) 90 MG TAB PO ×2 (09:01→22:00)
[2017-12-06] MEDS: HYDROmorphONE 2 MG TAB PO (10:21)
[2017-12-06 11:59] LABS: ADD MAN DIFF? NO
[2017-12-06 12:09] LABS: BASOPHIL # 0.1 10^3/ul (0.0-0.1); BASOPHILS % 0.9 % (0.0-2.0); EOSINOPHILS # 0.1 10^3/ul (0.0-0.5); EOSINOPHILS % 1.8 % (0.0-7.0); HEMATOCRIT 42.3 % (42.0-52.0); HEMOGLOBIN 14.8 g/dl (14.0-18.0); LYMPHOCYTES # 3.1 10^3/ul (0.8-2.9); LYMPHOCYTES % 39.1 % (15.0-51.0); MEAN CORPUSCULAR HEMOGLOBIN 31.6 pg (29.0-33.0); MEAN CORPUSCULAR VOLUME 90.4 fl (82.0-101.0); MEAN PLATELET VOLUME 11.7 fl (7.4-10.4); MONOCYTE # 0.6 10^3/ul (0.3-0.9); MONOCYTES % 7.2 % (0.0-11.0); NEUTROPHILS % 50.9 % (39.0-77.0); PLATELET COUNT 227 10^3/UL (140-415); RED BLOOD COUNT 4.68 10^6/ul (4.70-6.10); RED CELL DISTRIBUTION WIDTH 12.6 % (11.5-14.5)
[2017-12-06 12:09] LABS: WHITE BLOOD COUNT 7.8 10^3/ul (4.8-10.8)
[2017-12-06 12:21] LABS: ANION GAP 16 (8-16); BLOOD UREA NITROGEN 30 mg/dl (7-20); CALCIUM 9.1 mg/dl (8.4-10.2); CARBON DIOXIDE 21 mmol/L (21-31); CHLORIDE 109 mmol/L (97-110); CREATININE 1.28 mg/dl (0.61-1.24); GLUCOSE 114 mg/dl (70-220); MAGNESIUM 1.9 mg/dl (1.7-2.5); PHOSPHORUS 3.7 mg/dl (2.5-4.9); POTASSIUM 4.7 mmol/L (3.5-5.1); SODIUM 141 mmol/L (135-144)
[2017-12-06] MEDS: LACTULOSE 30ML CUP PO (21:41)
[2017-12-06] MEDS: LIDOCAINE 5% PATCH TD (21:57)
[2017-12-06] MEDS: METOPROLOL (XL) 50 MG TAB PO (21:59)
[2017-12-07] MEDS: HYDROmorphONE 2 MG TAB PO ×4 (00:37→22:01)
[2017-12-07 06:14] LABS: ANION GAP 16 (8-16)
[2017-12-07 06:15] LABS: BLOOD UREA NITROGEN 32 mg/dl (7-20); CALCIUM 8.9 mg/dl (8.4-10.2); CARBON DIOXIDE 22 mmol/L (21-31); CHLORIDE 109 mmol/L (97-110); CREATININE 1.35 mg/dl (0.61-1.24); GLUCOSE 129 mg/dl (70-220); PHOSPHORUS 4.5 mg/dl (2.5-4.9); POTASSIUM 3.8 mmol/L (3.5-5.1); SODIUM 143 mmol/L (135-144)
[2017-12-07 06:34] LABS: ADD MAN DIFF? NO
[2017-12-07] MEDS: PANTOPRAZOLE (EC) 40 MG TAB PO (06:50)
[2017-12-07] MEDS: RISPERIDONE 1 MG TAB PO ×2 (09:00→20:03)
[2017-12-07] MEDS: ISOSORBIDE MONONITRATE(SR)30 MG TAB PO (09:26)
[2017-12-07] MEDS: oxyCODONE (CR) 40 MG TAB [oxyCONTIN] PO ×2 (09:26→20:03)
[2017-12-07] MEDS: NIFEdipine (XL) 90 MG TAB PO ×2 (09:26→20:02)
[2017-12-07] MEDS: DOCUSATE SODIUM 250 MG CAP PO (09:26)
[2017-12-07] MEDS: SPIRONOLACTONE 25 MG TAB NGT (09:26)
[2017-12-07] MEDS: HYDROCHLOROTHIAZIDE 25 MG TAB PO (09:26)
[2017-12-07] MEDS: LISINOPRIL 20 MG TAB PO ×2 (09:27→20:01)
[2017-12-07] MEDS: NICOTINE (21 MG/24 HR) PATCH TRANSDERM (09:27)
[2017-12-07] MEDS: ENOXAPARIN 40 MG/0.4 ML SYG SC (09:28)
[2017-12-07 10:03] LABS: HEMATOCRIT 39.5 % (42.0-52.0); HEMOGLOBIN 13.7 g/dl (14.0-18.0); MEAN CORPUSCULAR HEMOGLOBIN 32.1 pg (29.0-33.0); MEAN CORPUSCULAR HGB CONC 34.7 g/dl (32.0-37.0); MEAN CORPUSCULAR VOLUME 92.5 fl (82.0-101.0); RED BLOOD COUNT 4.27 10^6/ul (4.70-6.10)
[2017-12-07 10:03] LABS: WHITE BLOOD COUNT 6.7 10^3/ul (4.8-10.8)
[2017-12-07 10:04] LABS: BASOPHILS % 1.2 % (0.0-2.0); EOSINOPHILS % 2.4 % (0.0-7.0); LYMPHOCYTES % 51.9 % (15.0-51.0); MEAN PLATELET VOLUME 10.4 fl (7.4-10.4); MONOCYTES % 9.5 % (0.0-11.0); NEUTROPHILS % 34.7 % (39.0-77.0); PLATELET COUNT 349 10^3/UL (140-415); RED CELL DISTRIBUTION WIDTH 12.5 % (11.5-14.5)
[2017-12-07] MEDS: METOPROLOL (XL) 50 MG TAB PO (20:02)
[2017-12-07] MEDS: LIDOCAINE 5% PATCH TD (20:04)
[2017-12-07] MEDS ORDERED: LIDOCAINE 5% PATCH TD (21:00)
[2017-12-07] MEDS: LACTULOSE 30ML CUP PO (22:01)
[2017-12-08] MEDS: PANTOPRAZOLE (EC) 40 MG TAB PO (06:19)
[2017-12-08] MEDS: HYDROmorphONE 2 MG TAB PO ×4 (06:20→22:51)
[2017-12-08] MEDS: RISPERIDONE 1 MG TAB PO ×2 (09:00→20:36)
[2017-12-08] MEDS: HYDROCHLOROTHIAZIDE 25 MG TAB PO (09:53)
[2017-12-08] MEDS: SPIRONOLACTONE 25 MG TAB NGT (09:53)
[2017-12-08] MEDS: oxyCODONE (CR) 40 MG TAB [oxyCONTIN] PO ×2 (09:53→20:34)
[2017-12-08] MEDS: LISINOPRIL 20 MG TAB PO ×2 (09:54→20:33)
[2017-12-08] MEDS: DOCUSATE SODIUM 250 MG CAP PO (09:54)
[2017-12-08] MEDS: NIFEdipine (XL) 90 MG TAB PO ×2 (09:54→20:34)
[2017-12-08] MEDS: ISOSORBIDE MONONITRATE(SR)30 MG TAB PO (09:54)
[2017-12-08] MEDS: NICOTINE (21 MG/24 HR) PATCH TRANSDERM (09:55)
[2017-12-08] MEDS: ENOXAPARIN 40 MG/0.4 ML SYG SC (09:55)
[2017-12-08] MEDS: LACTULOSE 30ML CUP PO (09:58)
[2017-12-08 12:11] LABS: ANION GAP 19 (8-16); BLOOD UREA NITROGEN 24 mg/dl (7-20); CALCIUM 9.1 mg/dl (8.4-10.2); CARBON DIOXIDE 23 mmol/L (21-31); CHLORIDE 106 mmol/L (97-110); CREATININE 1.08 mg/dl (0.61-1.24); GLUCOSE 121 mg/dl (70-220); PHOSPHORUS 3.6 mg/dl (2.5-4.9); POTASSIUM 4.3 mmol/L (3.5-5.1); SODIUM 144 mmol/L (135-144)
[2017-12-08] MEDS: DIPHENHYDRAMINE 25 MG CAP PO (15:41)
[2017-12-08] MEDS: CLONIDINE 0.3 MG/24 HR PATCH TRANSDERM (17:07)
[2017-12-08] MEDS: LIDOCAINE 5% PATCH TD (20:32)
[2017-12-08] MEDS: METOPROLOL (XL) 50 MG TAB PO (20:33)
[2017-12-09] MEDS: PANTOPRAZOLE (EC) 40 MG TAB PO (05:40)
[2017-12-09] MEDS: HYDROmorphONE 2 MG TAB PO ×3 (05:40→15:52)
[2017-12-09] MEDS: LISINOPRIL 20 MG TAB PO ×2 (09:00→20:34)
[2017-12-09] MEDS: NICOTINE (21 MG/24 HR) PATCH TRANSDERM (09:00)
[2017-12-09] MEDS: ISOSORBIDE MONONITRATE(SR)30 MG TAB PO (09:21)
[2017-12-09] MEDS: HYDROCHLOROTHIAZIDE 25 MG TAB PO (09:21)
[2017-12-09] MEDS: LACTULOSE 30ML CUP PO (09:21)
[2017-12-09] MEDS: DOCUSATE SODIUM 250 MG CAP PO (09:21)
[2017-12-09] MEDS: SPIRONOLACTONE 25 MG TAB NGT (09:22)
[2017-12-09] MEDS: RISPERIDONE 1 MG TAB PO ×2 (09:22→20:40)
[2017-12-09] MEDS: oxyCODONE (CR) 40 MG TAB [oxyCONTIN] PO ×2 (09:22→20:34)
[2017-12-09] MEDS: NIFEdipine (XL) 90 MG TAB PO ×2 (09:22→20:35)
[2017-12-09] MEDS: ENOXAPARIN 40 MG/0.4 ML SYG SC (09:24)
[2017-12-09] MEDS: METOPROLOL (XL) 50 MG TAB PO (20:33)
[2017-12-09] MEDS: LIDOCAINE 5% PATCH TD (20:39)
[2017-12-10] MEDS: PANTOPRAZOLE (EC) 40 MG TAB PO (05:29)
[2017-12-10] MEDS: ISOSORBIDE MONONITRATE(SR)30 MG TAB PO (08:43)
[2017-12-10] MEDS: HYDROCHLOROTHIAZIDE 25 MG TAB PO (08:43)
[2017-12-10] MEDS: DOCUSATE SODIUM 250 MG CAP PO (08:43)
[2017-12-10] MEDS: oxyCODONE (CR) 40 MG TAB [oxyCONTIN] PO ×2 (08:44→20:41)
[2017-12-10] MEDS: SPIRONOLACTONE 25 MG TAB NGT (08:44)
[2017-12-10] MEDS: NICOTINE (21 MG/24 HR) PATCH TRANSDERM (08:44)
[2017-12-10] MEDS: NIFEdipine (XL) 90 MG TAB PO ×2 (08:44→20:47)
[2017-12-10] MEDS: LISINOPRIL 20 MG TAB PO ×2 (08:45→20:47)
[2017-12-10] MEDS: ENOXAPARIN 40 MG/0.4 ML SYG SC (08:45)
[2017-12-10] MEDS: RISPERIDONE 1 MG TAB PO ×2 (08:54→20:49)
[2017-12-10] MEDS: HYDROmorphONE 2 MG TAB PO ×2 (10:55→14:43)
[2017-12-10] MEDS: POLYETHYLENE GLYCOL 17 GM PACKET PO (14:00)
[2017-12-10] MEDS: LACTULOSE 30ML CUP PO (14:40)
[2017-12-10] MEDS: LIDOCAINE 5% PATCH TD (20:41)
[2017-12-10] MEDS: METOPROLOL (XL) 50 MG TAB PO (20:47)
[2017-12-11] MEDS: DIPHENHYDRAMINE 25 MG CAP PO (01:45)
[2017-12-11] MEDS: HYDROmorphONE 2 MG TAB PO ×3 (02:56→16:02)
[2017-12-11] MEDS: PANTOPRAZOLE (EC) 40 MG TAB PO (05:36)
[2017-12-11] MEDS: RISPERIDONE 1 MG TAB PO ×2 (09:00→20:46)
[2017-12-11] MEDS: POLYETHYLENE GLYCOL 17 GM PACKET PO (09:00)
[2017-12-11] MEDS: HYDROCHLOROTHIAZIDE 25 MG TAB PO (09:53)
[2017-12-11] MEDS: NIFEdipine (XL) 90 MG TAB PO ×2 (09:53→20:41)
[2017-12-11] MEDS: ISOSORBIDE MONONITRATE(SR)30 MG TAB PO (09:54)
[2017-12-11] MEDS: DOCUSATE SODIUM 250 MG CAP PO (09:54)
[2017-12-11] MEDS: SPIRONOLACTONE 25 MG TAB NGT (09:54)
[2017-12-11] MEDS: oxyCODONE (CR) 40 MG TAB [oxyCONTIN] PO ×2 (09:54→20:41)
[2017-12-11] MEDS: LISINOPRIL 20 MG TAB PO ×2 (09:54→20:41)
[2017-12-11] MEDS: NICOTINE (21 MG/24 HR) PATCH TRANSDERM (09:55)
[2017-12-11] MEDS: ENOXAPARIN 40 MG/0.4 ML SYG SC (09:55)
[2017-12-11] MEDS: LACTULOSE 30ML CUP PO (12:37)
[2017-12-11] MEDS: METOPROLOL (XL) 50 MG TAB PO (20:40)
[2017-12-11] MEDS: LIDOCAINE 5% PATCH TD (20:42)
[2017-12-12] MEDS: PANTOPRAZOLE (EC) 40 MG TAB PO (05:48)
[2017-12-12] MEDS: POLYETHYLENE GLYCOL 17 GM PACKET PO (09:00)
[2017-12-12] MEDS: RISPERIDONE 1 MG TAB PO ×2 (09:00→21:00)
[2017-12-12] MEDS: DOCUSATE SODIUM 250 MG CAP PO (09:03)
[2017-12-12] MEDS: oxyCODONE (CR) 40 MG TAB [oxyCONTIN] PO ×2 (09:03→20:21)
[2017-12-12] MEDS: SPIRONOLACTONE 25 MG TAB NGT (09:03)
[2017-12-12] MEDS: ISOSORBIDE MONONITRATE(SR)30 MG TAB PO (09:03)
[2017-12-12] MEDS: LISINOPRIL 20 MG TAB PO ×2 (09:03→20:22)
[2017-12-12] MEDS: NICOTINE (21 MG/24 HR) PATCH TRANSDERM (09:04)
[2017-12-12] MEDS: NIFEdipine (XL) 90 MG TAB PO ×2 (09:04→20:21)
[2017-12-12] MEDS: HYDROCHLOROTHIAZIDE 25 MG TAB PO (09:04)
[2017-12-12] MEDS: ENOXAPARIN 40 MG/0.4 ML SYG SC (09:04)
[2017-12-12] MEDS: HYDROmorphONE 2 MG TAB PO (17:25)
[2017-12-12] MEDS: LIDOCAINE 5% PATCH TD (20:21)
[2017-12-12] MEDS: METOPROLOL (XL) 50 MG TAB PO (20:21)
[2017-12-13] MEDS: PANTOPRAZOLE (EC) 40 MG TAB PO (05:29)
[2017-12-13] MEDS: HYDROmorphONE 2 MG TAB PO ×4 (05:37→22:13)
[2017-12-13] MEDS: RISPERIDONE 1 MG TAB PO ×2 (09:00→20:29)
[2017-12-13] MEDS: POLYETHYLENE GLYCOL 17 GM PACKET PO (09:00)
[2017-12-13] MEDS: NIFEdipine (XL) 90 MG TAB PO ×2 (09:03→20:28)
[2017-12-13] MEDS: ISOSORBIDE MONONITRATE(SR)30 MG TAB PO (09:04)
[2017-12-13] MEDS: LISINOPRIL 20 MG TAB PO ×2 (09:04→20:28)
[2017-12-13] MEDS: SPIRONOLACTONE 25 MG TAB NGT (09:04)
[2017-12-13] MEDS: DOCUSATE SODIUM 250 MG CAP PO (09:06)
[2017-12-13] MEDS: oxyCODONE (CR) 40 MG TAB [oxyCONTIN] PO ×2 (09:06→20:29)
[2017-12-13] MEDS: NICOTINE (21 MG/24 HR) PATCH TRANSDERM (09:07)
[2017-12-13] MEDS: HYDROCHLOROTHIAZIDE 25 MG TAB PO (09:07)
[2017-12-13] MEDS: ENOXAPARIN 40 MG/0.4 ML SYG SC (09:08)
[2017-12-13] MEDS: LACTULOSE 30ML CUP PO (09:17)
[2017-12-13] MEDS: METOPROLOL (XL) 50 MG TAB PO (20:28)
[2017-12-13] MEDS: LIDOCAINE 5% PATCH TD (20:36)
[2017-12-14] MEDS: PANTOPRAZOLE (EC) 40 MG TAB PO (05:33)
[2017-12-14] MEDS: POLYETHYLENE GLYCOL 17 GM PACKET PO (09:00)
[2017-12-14] MEDS: SPIRONOLACTONE 25 MG TAB NGT (09:11)
[2017-12-14] MEDS: ENOXAPARIN 40 MG/0.4 ML SYG SC (09:11)
[2017-12-14] MEDS: DOCUSATE SODIUM 250 MG CAP PO (09:11)
[2017-12-14] MEDS: oxyCODONE (CR) 40 MG TAB [oxyCONTIN] PO ×2 (09:11→20:17)
[2017-12-14] MEDS: RISPERIDONE 1 MG TAB PO ×2 (09:11→20:18)
[2017-12-14] MEDS: NIFEdipine (XL) 90 MG TAB PO ×2 (09:12→20:17)
[2017-12-14] MEDS: LISINOPRIL 20 MG TAB PO ×2 (09:12→20:16)
[2017-12-14] MEDS: NICOTINE (21 MG/24 HR) PATCH TRANSDERM (09:12)
[2017-12-14] MEDS: HYDROCHLOROTHIAZIDE 25 MG TAB PO (09:12)
[2017-12-14] MEDS: ISOSORBIDE MONONITRATE(SR)30 MG TAB PO (09:12)
[2017-12-14 09:15] LABS: ADD MAN DIFF? NO
[2017-12-14] MEDS: LACTULOSE 30ML CUP PO (09:16)
[2017-12-14 09:17] LABS: WHITE BLOOD COUNT 6.1 10^3/ul (4.8-10.8)
[2017-12-14 09:17] LABS: BASOPHILS % 0.7 % (0.0-2.0); EOSINOPHILS # 0.2 10^3/ul (0.0-0.5); EOSINOPHILS % 3.8 % (0.0-7.0); HEMATOCRIT 40.2 % (42.0-52.0); HEMOGLOBIN 13.9 g/dl (14.0-18.0); MEAN CORPUSCULAR HEMOGLOBIN 31.7 pg (29.0-33.0); MEAN CORPUSCULAR HGB CONC 34.6 g/dl (32.0-37.0); MEAN CORPUSCULAR VOLUME 91.6 fl (82.0-101.0); MEAN PLATELET VOLUME 12.3 fl (7.4-10.4); MONOCYTE # 0.7 10^3/ul (0.3-0.9); MONOCYTES % 11.3 % (0.0-11.0); NEUTROPHIL # 2.1 10^3/ul (1.6-7.5); NEUTROPHILS % 33.9 % (39.0-77.0); PLATELET COUNT 144 10^3/UL (140-415); RED BLOOD COUNT 4.39 10^6/ul (4.70-6.10); RED CELL DISTRIBUTION WIDTH 12.3 % (11.5-14.5)
[2017-12-14 12:12] LABS: ANION GAP 12 (8-16); BLOOD UREA NITROGEN 26 mg/dl (7-20); CALCIUM 9.3 mg/dl (8.4-10.2); CARBON DIOXIDE 25 mmol/L (21-31); CHLORIDE 108 mmol/L (97-110); CREATININE 1.17 mg/dl (0.61-1.24); GLUCOSE 113 mg/dl (70-220); MAGNESIUM 1.8 mg/dl (1.7-2.5); PHOSPHORUS 3.7 mg/dl (2.5-4.9); POTASSIUM 4.4 mmol/L (3.5-5.1); SODIUM 141 mmol/L (135-144)
[2017-12-14] MEDS: ATORVASTATIN 40 MG TAB PO (20:17)
[2017-12-14] MEDS: METOPROLOL (XL) 50 MG TAB PO (20:17)
[2017-12-14] MEDS: LIDOCAINE 5% PATCH TD (20:22)
[2017-12-15] MEDS: HYDROmorphONE 2 MG TAB PO ×4 (05:16→23:16)
[2017-12-15] MEDS: PANTOPRAZOLE (EC) 40 MG TAB PO (05:16)
[2017-12-15] MEDS: RISPERIDONE 1 MG TAB PO ×2 (09:00→21:00)
[2017-12-15] MEDS: POLYETHYLENE GLYCOL 17 GM PACKET PO (09:00)
[2017-12-15] MEDS: LISINOPRIL 20 MG TAB PO ×2 (10:07→21:09)
[2017-12-15] MEDS: ENOXAPARIN 40 MG/0.4 ML SYG SC (10:08)
[2017-12-15] MEDS: NIFEdipine (XL) 90 MG TAB PO ×2 (10:08→21:09)
[2017-12-15] MEDS: NICOTINE (21 MG/24 HR) PATCH TRANSDERM (10:08)
[2017-12-15] MEDS: HYDROCHLOROTHIAZIDE 25 MG TAB PO (10:08)
[2017-12-15] MEDS: SPIRONOLACTONE 25 MG TAB NGT (10:08)
[2017-12-15] MEDS: DOCUSATE SODIUM 250 MG CAP PO (10:09)
[2017-12-15] MEDS: ISOSORBIDE MONONITRATE(SR)30 MG TAB PO (10:09)
[2017-12-15] MEDS: oxyCODONE (CR) 40 MG TAB [oxyCONTIN] PO ×2 (10:09→21:10)
[2017-12-15] MEDS: LACTULOSE 30ML CUP PO (10:13)
[2017-12-15] MEDS: CLONIDINE 0.3 MG/24 HR PATCH TRANSDERM (17:45)
[2017-12-15] MEDS: LIDOCAINE 5% PATCH TD (21:09)
[2017-12-15] MEDS: METOPROLOL (XL) 50 MG TAB PO (21:09)
[2017-12-15] MEDS: ATORVASTATIN 40 MG TAB PO (21:09)
[2017-12-16] MEDS: PANTOPRAZOLE (EC) 40 MG TAB PO (05:08)
[2017-12-16] MEDS: HYDROmorphONE 2 MG TAB PO ×3 (08:16→16:24)
[2017-12-16] MEDS: POLYETHYLENE GLYCOL 17 GM PACKET PO (09:00)
[2017-12-16] MEDS: RISPERIDONE 1 MG TAB PO ×2 (09:00→21:00)
[2017-12-16] MEDS: DOCUSATE SODIUM 250 MG CAP PO (09:36)
[2017-12-16] MEDS: ENOXAPARIN 40 MG/0.4 ML SYG SC (09:36)
[2017-12-16] MEDS: NICOTINE (21 MG/24 HR) PATCH TRANSDERM (09:36)
[2017-12-16] MEDS: NIFEdipine (XL) 90 MG TAB PO ×2 (09:37→22:45)
[2017-12-16] MEDS: ISOSORBIDE MONONITRATE(SR)30 MG TAB PO (09:37)
[2017-12-16] MEDS: oxyCODONE (CR) 40 MG TAB [oxyCONTIN] PO ×2 (09:37→22:47)
[2017-12-16] MEDS: SPIRONOLACTONE 25 MG TAB NGT (09:37)
[2017-12-16] MEDS: HYDROCHLOROTHIAZIDE 25 MG TAB PO (09:37)
[2017-12-16] MEDS: LISINOPRIL 20 MG TAB PO ×2 (09:37→22:45)
[2017-12-16] MEDS: LACTULOSE 30ML CUP PO (09:41)
[2017-12-16] MEDS: ATORVASTATIN 40 MG TAB PO (22:46)
[2017-12-16] MEDS: METOPROLOL (XL) 50 MG TAB PO (22:46)
[2017-12-16] MEDS: LIDOCAINE 5% PATCH TD (22:48)
[2017-12-17] MEDS: PANTOPRAZOLE (EC) 40 MG TAB PO (06:28)
[2017-12-17] MEDS: HYDROmorphONE 2 MG TAB PO ×2 (06:28→13:22)
[2017-12-17 06:31] LABS: ADD MAN DIFF? NO
[2017-12-17 06:35] LABS: WHITE BLOOD COUNT 7.7 10^3/ul (4.8-10.8)
[2017-12-17 06:35] LABS: BASOPHIL # 0.1 10^3/ul (0.0-0.1); BASOPHILS % 0.6 % (0.0-2.0); EOSINOPHILS # 0.2 10^3/ul (0.0-0.5); EOSINOPHILS % 3.1 % (0.0-7.0); HEMATOCRIT 38.4 % (42.0-52.0); HEMOGLOBIN 13.3 g/dl (14.0-18.0); LYMPHOCYTES # 3.3 10^3/ul (0.8-2.9); LYMPHOCYTES % 42.4 % (15.0-51.0); MEAN CORPUSCULAR HEMOGLOBIN 31.4 pg (29.0-33.0); MEAN CORPUSCULAR HGB CONC 34.6 g/dl (32.0-37.0); MEAN CORPUSCULAR VOLUME 90.8 fl (82.0-101.0); MEAN PLATELET VOLUME 10.5 fl (7.4-10.4); MONOCYTE # 0.5 10^3/ul (0.3-0.9); NEUTROPHIL # 3.6 10^3/ul (1.6-7.5); NEUTROPHILS % 46.8 % (39.0-77.0); PLATELET COUNT 260 10^3/UL (140-415); RED BLOOD COUNT 4.23 10^6/ul (4.70-6.10)
[2017-12-17 06:56] LABS: ANION GAP 14 (8-16); BLOOD UREA NITROGEN 25 mg/dl (7-20); CALCIUM 9.4 mg/dl (8.4-10.2); CARBON DIOXIDE 27 mmol/L (21-31); CHLORIDE 109 mmol/L (97-110); CREATININE 1.08 mg/dl (0.61-1.24); GLUCOSE 112 mg/dl (70-220); POTASSIUM 3.9 mmol/L (3.5-5.1); SODIUM 146 mmol/L (135-144)
[2017-12-17] MEDS: RISPERIDONE 1 MG TAB PO ×2 (09:00→21:00)
[2017-12-17] MEDS: POLYETHYLENE GLYCOL 17 GM PACKET PO (09:00)
[2017-12-17] MEDS: NIFEdipine (XL) 90 MG TAB PO ×2 (10:42→22:30)
[2017-12-17] MEDS: DOCUSATE SODIUM 250 MG CAP PO (10:42)
[2017-12-17] MEDS: SPIRONOLACTONE 25 MG TAB NGT (10:43)
[2017-12-17] MEDS: oxyCODONE (CR) 40 MG TAB [oxyCONTIN] PO ×2 (10:43→22:30)
[2017-12-17] MEDS: ISOSORBIDE MONONITRATE(SR)30 MG TAB PO (10:43)
[2017-12-17] MEDS: HYDROCHLOROTHIAZIDE 25 MG TAB PO (10:43)
[2017-12-17] MEDS: LISINOPRIL 20 MG TAB PO ×2 (10:44→21:00)
[2017-12-17] MEDS: NICOTINE (21 MG/24 HR) PATCH TRANSDERM (10:44)
[2017-12-17] MEDS: ENOXAPARIN 40 MG/0.4 ML SYG SC (10:45)
[2017-12-17] MEDS: LACTULOSE 30ML CUP PO (10:48)
[2017-12-17] MEDS: LIDOCAINE 5% PATCH TD (22:28)
[2017-12-17] MEDS: METOPROLOL (XL) 50 MG TAB PO (22:29)
[2017-12-17] MEDS: ATORVASTATIN 40 MG TAB PO (22:29)
[2017-12-18] MEDS: HYDROmorphONE 2 MG TAB PO ×5 (00:53→23:04)
[2017-12-18] MEDS: PANTOPRAZOLE (EC) 40 MG TAB PO (05:26)
[2017-12-18] MEDS: POLYETHYLENE GLYCOL 17 GM PACKET PO (09:00)
[2017-12-18] MEDS: RISPERIDONE 1 MG TAB PO ×2 (09:00→21:00)
[2017-12-18] MEDS: oxyCODONE (CR) 40 MG TAB [oxyCONTIN] PO ×2 (09:02→21:24)
[2017-12-18] MEDS: HYDROCHLOROTHIAZIDE 25 MG TAB PO (09:40)
[2017-12-18] MEDS: LACTULOSE 30ML CUP PO (09:40)
[2017-12-18] MEDS: NICOTINE (21 MG/24 HR) PATCH TRANSDERM (09:40)
[2017-12-18] MEDS: ISOSORBIDE MONONITRATE(SR)30 MG TAB PO (09:41)
[2017-12-18] MEDS: DOCUSATE SODIUM 250 MG CAP PO (09:41)
[2017-12-18] MEDS: SPIRONOLACTONE 25 MG TAB NGT (09:41)
[2017-12-18] MEDS: NIFEdipine (XL) 90 MG TAB PO ×2 (09:41→21:24)
[2017-12-18] MEDS: LISINOPRIL 20 MG TAB PO ×2 (09:42→21:24)
[2017-12-18] MEDS: ENOXAPARIN 40 MG/0.4 ML SYG SC (09:43)
[2017-12-18] MEDS: LIDOCAINE 5% PATCH TD (21:21)
[2017-12-18] MEDS: ATORVASTATIN 40 MG TAB PO (21:23)
[2017-12-18] MEDS: METOPROLOL (XL) 50 MG TAB PO (21:23)
[2017-12-19] MEDS: HYDROmorphONE 2 MG TAB PO ×3 (06:03→21:56)
[2017-12-19] MEDS: PANTOPRAZOLE (EC) 40 MG TAB PO (06:03)
[2017-12-19] MEDS: DOCUSATE SODIUM 250 MG CAP PO (08:59)
[2017-12-19] MEDS: LACTULOSE 30ML CUP PO (08:59)
[2017-12-19] MEDS: RISPERIDONE 1 MG TAB PO ×2 (09:00→21:00)
[2017-12-19] MEDS: POLYETHYLENE GLYCOL 17 GM PACKET PO (09:00)
[2017-12-19] MEDS: ENOXAPARIN 40 MG/0.4 ML SYG SC (09:00)
[2017-12-19] MEDS: oxyCODONE (CR) 40 MG TAB [oxyCONTIN] PO ×2 (09:01→20:12)
[2017-12-19] MEDS: HYDROCHLOROTHIAZIDE 25 MG TAB PO (09:01)
[2017-12-19] MEDS: SPIRONOLACTONE 25 MG TAB NGT (09:01)
[2017-12-19] MEDS: ISOSORBIDE MONONITRATE(SR)30 MG TAB PO (09:02)
[2017-12-19] MEDS: LISINOPRIL 20 MG TAB PO ×2 (09:02→20:11)
[2017-12-19] MEDS: NIFEdipine (XL) 90 MG TAB PO ×2 (09:04→20:10)
[2017-12-19] MEDS: NICOTINE (21 MG/24 HR) PATCH TRANSDERM (09:05)
[2017-12-19] MEDS: ASPIRIN 81 MG TAB PO (18:38)
[2017-12-19] MEDS: METOPROLOL (XL) 50 MG TAB PO (20:11)
[2017-12-19] MEDS: ATORVASTATIN 40 MG TAB PO (20:11)
[2017-12-19] MEDS: LIDOCAINE 5% PATCH TD (20:13)
[2017-12-20] MEDS: PANTOPRAZOLE (EC) 40 MG TAB PO (05:13)
[2017-12-20] MEDS: HYDROmorphONE 2 MG TAB PO ×4 (05:17→22:07)
[2017-12-20] MEDS: DOCUSATE SODIUM 250 MG CAP PO (08:20)
[2017-12-20] MEDS: NIFEdipine (XL) 90 MG TAB PO ×2 (08:21→20:58)
[2017-12-20] MEDS: ASPIRIN 81 MG TAB PO (08:21)
[2017-12-20] MEDS: HYDROCHLOROTHIAZIDE 25 MG TAB PO (08:21)
[2017-12-20] MEDS: SPIRONOLACTONE 25 MG TAB NGT (08:21)
[2017-12-20] MEDS: LISINOPRIL 20 MG TAB PO ×2 (08:21→21:00)
[2017-12-20] MEDS: ISOSORBIDE MONONITRATE(SR)30 MG TAB PO (08:21)
[2017-12-20] MEDS: oxyCODONE (CR) 40 MG TAB [oxyCONTIN] PO ×2 (08:21→20:59)
[2017-12-20] MEDS: NICOTINE (21 MG/24 HR) PATCH TRANSDERM (08:21)
[2017-12-20] MEDS: ENOXAPARIN 40 MG/0.4 ML SYG SC (08:22)
[2017-12-20] MEDS: RISPERIDONE 1 MG TAB PO ×2 (08:23→20:59)
[2017-12-20] MEDS: POLYETHYLENE GLYCOL 17 GM PACKET PO (08:23)
[2017-12-20] MEDS: LACTULOSE 30ML CUP PO (09:30)
[2017-12-20] MEDS: ATORVASTATIN 40 MG TAB PO (20:59)
[2017-12-20] MEDS: METOPROLOL (XL) 50 MG TAB PO (20:59)
[2017-12-20] MEDS: LIDOCAINE 5% PATCH TD (21:01)
[2017-12-21] MEDS: HYDROmorphONE 2 MG TAB PO ×5 (01:01→19:53)
[2017-12-21] MEDS: PANTOPRAZOLE (EC) 40 MG TAB PO (05:36)
[2017-12-21] MEDS: oxyCODONE (CR) 40 MG TAB [oxyCONTIN] PO ×2 (08:41→22:24)
[2017-12-21] MEDS: SPIRONOLACTONE 25 MG TAB NGT (08:42)
[2017-12-21] MEDS: ASPIRIN 81 MG TAB PO (08:43)
[2017-12-21] MEDS: DOCUSATE SODIUM 250 MG CAP PO (08:43)
[2017-12-21] MEDS: ISOSORBIDE MONONITRATE(SR)30 MG TAB PO (08:44)
[2017-12-21] MEDS: NIFEdipine (XL) 90 MG TAB PO ×2 (08:44→22:22)
[2017-12-21] MEDS: HYDROCHLOROTHIAZIDE 25 MG TAB PO (08:44)
[2017-12-21] MEDS: POLYETHYLENE GLYCOL 17 GM PACKET PO (08:44)
[2017-12-21] MEDS: LISINOPRIL 20 MG TAB PO ×2 (08:45→22:23)
[2017-12-21] MEDS: RISPERIDONE 1 MG TAB PO ×2 (08:45→21:00)
[2017-12-21] MEDS: NICOTINE (21 MG/24 HR) PATCH TRANSDERM (08:46)
[2017-12-21] MEDS: ENOXAPARIN 40 MG/0.4 ML SYG SC (08:47)
[2017-12-21] MEDS: LACTULOSE 30ML CUP PO (12:32)
[2017-12-21 15:12] LABS: ANION GAP 13 (8-16); BLOOD UREA NITROGEN 28 mg/dl (7-20); CALCIUM 8.9 mg/dl (8.4-10.2); CARBON DIOXIDE 23 mmol/L (21-31); CHLORIDE 105 mmol/L (97-110); CREATININE 1.61 mg/dl (0.61-1.24); GLUCOSE 121 mg/dl (70-220); MAGNESIUM 1.8 mg/dl (1.7-2.5); PHOSPHORUS 4.3 mg/dl (2.5-4.9); SODIUM 137 mmol/L (135-144)
[2017-12-21] MEDS: ATORVASTATIN 40 MG TAB PO (22:22)
[2017-12-21] MEDS: METOPROLOL (XL) 50 MG TAB PO (22:23)
[2017-12-21] MEDS: LIDOCAINE 5% PATCH TD (22:26)
[2017-12-22] MEDS: HYDROmorphONE 2 MG TAB PO ×5 (02:34→19:26)
[2017-12-22] MEDS: PANTOPRAZOLE (EC) 40 MG TAB PO (05:46)
[2017-12-22] MEDS: POLYETHYLENE GLYCOL 17 GM PACKET PO (09:00)
[2017-12-22] MEDS: RISPERIDONE 1 MG TAB PO ×3 (09:00→21:00)
[2017-12-22] MEDS: NIFEdipine (XL) 90 MG TAB PO ×2 (09:32→21:43)
[2017-12-22] MEDS: LISINOPRIL 20 MG TAB PO ×2 (09:33→21:43)
[2017-12-22] MEDS: ISOSORBIDE MONONITRATE(SR)30 MG TAB PO (09:33)
[2017-12-22] MEDS: HYDROCHLOROTHIAZIDE 25 MG TAB PO (09:33)
[2017-12-22] MEDS: oxyCODONE (CR) 40 MG TAB [oxyCONTIN] PO ×2 (09:34→21:44)
[2017-12-22] MEDS: DOCUSATE SODIUM 250 MG CAP PO (09:34)
[2017-12-22] MEDS: ASPIRIN 81 MG TAB PO (09:34)
[2017-12-22] MEDS: SPIRONOLACTONE 25 MG TAB NGT (09:34)
[2017-12-22] MEDS: ENOXAPARIN 40 MG/0.4 ML SYG SC (09:35)
[2017-12-22] MEDS: NICOTINE (21 MG/24 HR) PATCH TRANSDERM (09:36)
[2017-12-22] MEDS: CLONIDINE 0.3 MG/24 HR PATCH TRANSDERM (17:08)
[2017-12-22] MEDS: ATORVASTATIN 40 MG TAB PO (21:43)
[2017-12-22] MEDS: METOPROLOL (XL) 50 MG TAB PO (21:44)
[2017-12-22] MEDS: LIDOCAINE 5% PATCH TD (21:45)
[2017-12-23] MEDS: HYDROmorphONE 2 MG TAB PO ×5 (00:11→23:57)
[2017-12-23] MEDS: PANTOPRAZOLE (EC) 40 MG TAB PO (06:04)
[2017-12-23] MEDS: LACTULOSE 30ML CUP PO ×2 (06:09→12:46)
[2017-12-23 07:24] LABS: ANION GAP 16 (8-16); BLOOD UREA NITROGEN 23 mg/dl (7-20); CALCIUM 9.4 mg/dl (8.4-10.2); CARBON DIOXIDE 25 mmol/L (21-31); CHLORIDE 106 mmol/L (97-110); CREATININE 1.02 mg/dl (0.61-1.24); GLUCOSE 106 mg/dl (70-220); MAGNESIUM 1.7 mg/dl (1.7-2.5); PHOSPHORUS 4.5 mg/dl (2.5-4.9); SODIUM 143 mmol/L (135-144)
[2017-12-23] MEDS: RISPERIDONE 1 MG TAB PO ×2 (09:00→21:00)
[2017-12-23] MEDS: POLYETHYLENE GLYCOL 17 GM PACKET PO (09:00)
[2017-12-23] MEDS: ISOSORBIDE MONONITRATE(SR)30 MG TAB PO (09:54)
[2017-12-23] MEDS: ENOXAPARIN 40 MG/0.4 ML SYG SC (09:54)
[2017-12-23] MEDS: oxyCODONE (CR) 40 MG TAB [oxyCONTIN] PO ×2 (09:54→21:26)
[2017-12-23] MEDS: LISINOPRIL 20 MG TAB PO ×2 (09:54→21:27)
[2017-12-23] MEDS: DOCUSATE SODIUM 250 MG CAP PO (09:54)
[2017-12-23] MEDS: HYDROCHLOROTHIAZIDE 25 MG TAB PO (09:55)
[2017-12-23] MEDS: NIFEdipine (XL) 90 MG TAB PO ×2 (09:55→21:27)
[2017-12-23] MEDS: NICOTINE (21 MG/24 HR) PATCH TRANSDERM (09:55)
[2017-12-23] MEDS: ASPIRIN 81 MG TAB PO (09:59)
[2017-12-23] MEDS: SPIRONOLACTONE 25 MG TAB NGT (09:59)
[2017-12-23] MEDS: SENNA TAB PO ×2 (12:47→21:26)
[2017-12-23] MEDS: LIDOCAINE 5% PATCH TD (21:28)
[2017-12-23] MEDS: METOPROLOL (XL) 50 MG TAB PO (21:28)
[2017-12-23] MEDS: ATORVASTATIN 40 MG TAB PO (21:33)
[2017-12-24] MEDS: PANTOPRAZOLE (EC) 40 MG TAB PO (05:58)
[2017-12-24] MEDS: HYDROmorphONE 2 MG TAB PO ×4 (05:59→17:43)
[2017-12-24] MEDS: SENNA TAB PO ×2 (09:00→21:04)
[2017-12-24] MEDS: DOCUSATE SODIUM 250 MG CAP PO (09:00)
[2017-12-24] MEDS: RISPERIDONE 1 MG TAB PO ×2 (09:00→21:00)
[2017-12-24] MEDS: POLYETHYLENE GLYCOL 17 GM PACKET PO (09:00)
[2017-12-24] MEDS: NICOTINE (21 MG/24 HR) PATCH TRANSDERM (09:36)
[2017-12-24] MEDS: ENOXAPARIN 40 MG/0.4 ML SYG SC (09:36)
[2017-12-24] MEDS: SPIRONOLACTONE 25 MG TAB NGT (09:40)
[2017-12-24] MEDS: HYDROCHLOROTHIAZIDE 25 MG TAB PO (09:40)
[2017-12-24] MEDS: ASPIRIN 81 MG TAB PO (09:41)
[2017-12-24] MEDS: LACTULOSE 30ML CUP PO (09:41)
[2017-12-24] MEDS: NIFEdipine (XL) 90 MG TAB PO ×2 (09:42→21:05)
[2017-12-24] MEDS: ISOSORBIDE MONONITRATE(SR)30 MG TAB PO (09:42)
[2017-12-24] MEDS: LISINOPRIL 20 MG TAB PO ×2 (09:42→21:05)
[2017-12-24] MEDS: oxyCODONE (CR) 40 MG TAB [oxyCONTIN] PO ×2 (09:43→21:06)
[2017-12-24] MEDS: ATORVASTATIN 40 MG TAB PO (21:04)
[2017-12-24] MEDS: METOPROLOL (XL) 50 MG TAB PO (21:05)
[2017-12-24] MEDS: LIDOCAINE 5% PATCH TD (21:07)
[2017-12-25] MEDS: HYDROmorphONE 2 MG TAB PO ×3 (02:11→14:56)
[2017-12-25] MEDS: PANTOPRAZOLE (EC) 40 MG TAB PO (06:01)
[2017-12-25] MEDS: ENOXAPARIN 40 MG/0.4 ML SYG SC (08:33)
[2017-12-25] MEDS: HYDROCHLOROTHIAZIDE 25 MG TAB PO (08:34)
[2017-12-25] MEDS: SENNA TAB PO ×3 (08:34→20:35)
[2017-12-25] MEDS: LISINOPRIL 20 MG TAB PO ×2 (08:34→20:36)
[2017-12-25] MEDS: ISOSORBIDE MONONITRATE(SR)30 MG TAB PO (08:34)
[2017-12-25] MEDS: NIFEdipine (XL) 90 MG TAB PO ×2 (08:35→20:36)
[2017-12-25] MEDS: DOCUSATE SODIUM 250 MG CAP PO (08:35)
[2017-12-25] MEDS: NICOTINE (21 MG/24 HR) PATCH TRANSDERM (08:35)
[2017-12-25] MEDS: SPIRONOLACTONE 25 MG TAB NGT (08:35)
[2017-12-25] MEDS: RISPERIDONE 1 MG TAB PO ×3 (08:35→20:43)
[2017-12-25] MEDS: oxyCODONE (CR) 40 MG TAB [oxyCONTIN] PO ×2 (08:35→20:36)
[2017-12-25] MEDS: ASPIRIN 81 MG TAB PO (08:36)
[2017-12-25] MEDS: POLYETHYLENE GLYCOL 17 GM PACKET PO ×2 (08:36→08:59)
[2017-12-25] MEDS: LACTULOSE 30ML CUP PO (08:43)
[2017-12-25] MEDS: METOPROLOL (XL) 50 MG TAB PO (20:35)
[2017-12-25] MEDS: ATORVASTATIN 40 MG TAB PO (20:35)
[2017-12-25] MEDS: LIDOCAINE 5% PATCH TD (20:37)
[2017-12-26] MEDS: HYDROmorphONE 2 MG TAB PO ×5 (04:07→22:18)
[2017-12-26] MEDS: PANTOPRAZOLE (EC) 40 MG TAB PO (06:09)
[2017-12-26] MEDS: NICOTINE (21 MG/24 HR) PATCH TRANSDERM (08:44)
[2017-12-26] MEDS: DOCUSATE SODIUM 250 MG CAP PO (08:44)
[2017-12-26] MEDS: ENOXAPARIN 40 MG/0.4 ML SYG SC (08:45)
[2017-12-26] MEDS: HYDROCHLOROTHIAZIDE 25 MG TAB PO (08:46)
[2017-12-26] MEDS: LISINOPRIL 20 MG TAB PO ×2 (08:46→21:40)
[2017-12-26] MEDS: LACTULOSE 30ML CUP PO ×2 (08:47→22:20)
[2017-12-26] MEDS: oxyCODONE (CR) 40 MG TAB [oxyCONTIN] PO ×2 (08:47→21:38)
[2017-12-26] MEDS: SENNA TAB PO ×2 (08:47→21:00)
[2017-12-26] MEDS: ISOSORBIDE MONONITRATE(SR)30 MG TAB PO (08:47)
[2017-12-26] MEDS: NIFEdipine (XL) 90 MG TAB PO ×2 (08:47→21:40)
[2017-12-26] MEDS: SPIRONOLACTONE 25 MG TAB NGT (08:47)
[2017-12-26] MEDS: POLYETHYLENE GLYCOL 17 GM PACKET PO (08:48)
[2017-12-26] MEDS: ASPIRIN 81 MG TAB PO (08:48)
[2017-12-26] MEDS: RISPERIDONE 1 MG TAB PO ×2 (08:48→21:00)
[2017-12-26] MEDS: ATORVASTATIN 40 MG TAB PO (21:38)
[2017-12-26] MEDS: METOPROLOL (XL) 50 MG TAB PO (21:42)
[2017-12-26] MEDS: LIDOCAINE 5% PATCH TD (21:43)
[2017-12-27] MEDS: PANTOPRAZOLE (EC) 40 MG TAB PO (06:15)
[2017-12-27] MEDS: HYDROmorphONE 2 MG TAB PO ×6 (06:17→19:58)
[2017-12-27] MEDS: RISPERIDONE 1 MG TAB PO ×3 (08:06→21:00)
[2017-12-27] MEDS: ASPIRIN 81 MG TAB PO (08:07)
[2017-12-27] MEDS: SENNA TAB PO ×2 (08:07→22:09)
[2017-12-27] MEDS: ISOSORBIDE MONONITRATE(SR)30 MG TAB PO (08:07)
[2017-12-27] MEDS: NIFEdipine (XL) 90 MG TAB PO ×2 (08:08→22:06)
[2017-12-27] MEDS: oxyCODONE (CR) 40 MG TAB [oxyCONTIN] PO ×2 (08:08→22:05)
[2017-12-27] MEDS: NICOTINE (21 MG/24 HR) PATCH TRANSDERM (08:09)
[2017-12-27] MEDS: DOCUSATE SODIUM 250 MG CAP PO (08:09)
[2017-12-27] MEDS: ENOXAPARIN 40 MG/0.4 ML SYG SC (08:10)
[2017-12-27] MEDS: POLYETHYLENE GLYCOL 17 GM PACKET PO (08:22)
[2017-12-27] MEDS: HYDROCHLOROTHIAZIDE 25 MG TAB PO (11:35)
[2017-12-27] MEDS: LISINOPRIL 20 MG TAB PO ×2 (11:36→22:06)
[2017-12-27] MEDS: SPIRONOLACTONE 25 MG TAB NGT (11:36)
[2017-12-27] MEDS: ATORVASTATIN 40 MG TAB PO (22:06)
[2017-12-27] MEDS: METOPROLOL (XL) 50 MG TAB PO (22:06)
[2017-12-27] MEDS: LIDOCAINE 5% PATCH TD (22:07)
[2017-12-28] MEDS: HYDROmorphONE 2 MG TAB PO ×8 (01:30→23:12)
[2017-12-28] MEDS: PANTOPRAZOLE (EC) 40 MG TAB PO (06:06)
[2017-12-28 06:48] LABS: ANION GAP 13 (8-16); BLOOD UREA NITROGEN 24 mg/dl (7-20); CALCIUM 9.1 mg/dl (8.4-10.2); CARBON DIOXIDE 25 mmol/L (21-31); CHLORIDE 108 mmol/L (97-110); CREATININE 1.07 mg/dl (0.61-1.24); GLUCOSE 125 mg/dl (70-220); MAGNESIUM 1.8 mg/dl (1.7-2.5); PHOSPHORUS 3.8 mg/dl (2.5-4.9); SODIUM 142 mmol/L (135-144)
[2017-12-28] MEDS: DOCUSATE SODIUM 250 MG CAP PO (08:20)
[2017-12-28] MEDS: ISOSORBIDE MONONITRATE(SR)30 MG TAB PO ×2 (08:21→08:46)
[2017-12-28] MEDS: LISINOPRIL 20 MG TAB PO ×2 (08:21→21:57)
[2017-12-28] MEDS: HYDROCHLOROTHIAZIDE 25 MG TAB PO (08:22)
[2017-12-28] MEDS: NIFEdipine (XL) 90 MG TAB PO ×2 (08:22→21:57)
[2017-12-28] MEDS: NICOTINE (21 MG/24 HR) PATCH TRANSDERM (08:22)
[2017-12-28] MEDS: SPIRONOLACTONE 25 MG TAB NGT (08:22)
[2017-12-28] MEDS: ASPIRIN 81 MG TAB PO (08:22)
[2017-12-28] MEDS: ENOXAPARIN 40 MG/0.4 ML SYG SC (08:23)
[2017-12-28] MEDS: SENNA TAB PO ×2 (08:42→21:56)
[2017-12-28] MEDS: POLYETHYLENE GLYCOL 17 GM PACKET PO (08:43)
[2017-12-28] MEDS: oxyCODONE (CR) 40 MG TAB [oxyCONTIN] PO ×2 (08:43→21:52)
[2017-12-28] MEDS: RISPERIDONE 1 MG TAB PO ×2 (08:43→21:00)
[2017-12-28] MEDS: LACTULOSE 30ML CUP PO (17:41)
[2017-12-28] MEDS: ATORVASTATIN 40 MG TAB PO (21:00)
[2017-12-28] MEDS: LIDOCAINE 5% PATCH TD (21:57)
[2017-12-28] MEDS: METOPROLOL (XL) 50 MG TAB PO (21:57)
[2017-12-29] MEDS: HYDROmorphONE 2 MG TAB PO ×7 (03:45→18:27)
[2017-12-29] MEDS: PANTOPRAZOLE (EC) 40 MG TAB PO (06:32)
[2017-12-29] MEDS: SENNA TAB PO (08:51)
[2017-12-29] MEDS: ASPIRIN 81 MG TAB PO (08:51)
[2017-12-29] MEDS: HYDROCHLOROTHIAZIDE 25 MG TAB PO (08:52)
[2017-12-29] MEDS: LISINOPRIL 20 MG TAB PO (08:53)
[2017-12-29] MEDS: ISOSORBIDE MONONITRATE(SR)30 MG TAB PO (08:53)
[2017-12-29] MEDS: DOCUSATE SODIUM 250 MG CAP PO (08:53)
[2017-12-29] MEDS: oxyCODONE (CR) 40 MG TAB [oxyCONTIN] PO (08:53)
[2017-12-29] MEDS: NIFEdipine (XL) 90 MG TAB PO (08:53)
[2017-12-29] MEDS: SPIRONOLACTONE 25 MG TAB NGT (08:53)
[2017-12-29] MEDS: NICOTINE (21 MG/24 HR) PATCH TRANSDERM (08:54)
[2017-12-29] MEDS: POLYETHYLENE GLYCOL 17 GM PACKET PO (08:54)
[2017-12-29] MEDS: ENOXAPARIN 40 MG/0.4 ML SYG SC (08:54)
[2017-12-29] MEDS: RISPERIDONE 1 MG TAB PO (08:54)
[2017-12-29] MEDS: CLONIDINE 0.3 MG/24 HR PATCH TRANSDERM (17:53)
== END 2017-12-29 20:12 | DRG 394 ==
LOC: PP2 23:47 → E/R 17:25
PROC: 0T2BX0Z Change Drainage Device in Bladder, External Approach (ICD-10-PCS; principal; 2017-11-25)
DX: K94.09 Other complications of colostomy (principal); K56.699 Other intestinal obstruction unspecified as to partial versus complete obstruction; T83.510A Infection and inflammatory reaction due to cystostomy catheter, initial encounter; G82.20 Paraplegia, unspecified; N17.9 Acute kidney failure, unspecified; E87.0 Hyperosmolality and hypernatremia; N39.0 Urinary tract infection, site not specified; Z86.73 Personal history of transient ischemic attack (TIA), and cerebral infarction without residual deficits; I10 Essential (primary) hypertension; Z96.0 Presence of urogenital implants; M19.011 Primary osteoarthritis, right shoulder; R62.7 Adult failure to thrive; B19.20 Unspecified viral hepatitis C without hepatic coma; I25.10 Atherosclerotic heart disease of native coronary artery without angina pectoris; Z91.14 Patient's other noncompliance with medication regimen; F17.200 Nicotine dependence, unspecified, uncomplicated; Z76.5 Malingerer [conscious simulation]; S22.089D Unspecified fracture of T11-T12 vertebra, subsequent encounter for fracture with routine healing; I16.0 Hypertensive urgency; D64.9 Anemia, unspecified; E83.42 Hypomagnesemia; I25.2 Old myocardial infarction; E26.9 Hyperaldosteronism, unspecified; G89.4 Chronic pain syndrome; K59.00 Constipation, unspecified; B95.2 Enterococcus as the cause of diseases classified elsewhere; N31.9 Neuromuscular dysfunction of bladder, unspecified
CPT/HCPCS: 36415; 73030-RT; 74018; 74177; 74250; 80048; 80053; 80061; 81001; 81003; 82043; 82088; 82306; 82550; 82553; 83615; 83690; 83735; 84100; 84155; 84244; 84300; 84443; 84484; 85025; 85610; 86704; 86709; 86803; 87081; 87086; 87340; 93005; 93306; 96361; 96374; 96375; 97110; 97161; 97530; 99217; 99285-25; G0378